=== PATIENT | male | born 1950 | race Caucasian/White ===

== ENCOUNTER 2018-05-08 05:32 | Day surgery (SDC) | payer OTHER, SELFPAY ==
--- NOTE | 2018-05-08 05:32 | DT_ITS ---
This patient was seen during an EMR downtime May 01, 2018 - May 08, 2018. This patient may have a combination of paper and electronic documentation or all paper documentation. All documentation is viewable within the e-chart portion of [facility] for each patient visit.
== END 2018-05-08 07:25 | disposition home or self-care (01) ==
PROVIDERS: Family Provider Family Medicine; PCP Family Medicine; Visit Provider Surgery
PROC: 0DJD8ZZ Inspection of Lower Intestinal Tract, Via Natural or Artificial Opening Endoscopic (ICD-10-PCS; CPT 45378; principal; 2018-05-08 06:25)
DX: K57.30 Diverticulosis of large intestine without perforation or abscess without bleeding (principal); E03.9 Hypothyroidism, unspecified; Z85.828 Personal history of other malignant neoplasm of skin; Z86.010 Personal history of colon polyps; Z87.891 Personal history of nicotine dependence; Z80.0 Family history of malignant neoplasm of digestive organs
CPT/HCPCS: 45378; 99152; 99153; J7120

== ENCOUNTER 2019-05-29 08:25 | Day surgery (SDC) | payer MEDICARE, OTHER, SELFPAY ==
[2019-04-26 13:28] VITALS: BMI 25.3
--- NOTE | 2019-05-28 22:16 | HP.PCM_ITS ---
History and Physical Date of Admission: 05/29/19 HISTORY OF PRESENT ILLNESS The patient comes in today for a TBSE. He has concerns about lesions on his left roman catholic, left lateral forehead by eyebrow, left lateral forehead by hairline, left lateral radial elbow, and right roman catholic area that have increased in size over the last several months and have become more raised in configuration and have developed irregular borders. He has concerns about a lesion on the dorsum left foot between the 3rd and 4th toes that has uniform pigmentation and regular borders and also a lesion on his left lateral neck that has uniform pigmentation and regular borders. He has no complaints about his scar on his left lateral upper eyelid after excision of actinic keratosis with atypia back in November 2013. His lesion on his right mid volar forearm remains stable with no changes. He has not noticed any changes in the previous lesions that were clinical benign keratoses that we were observing namely the left posterior leg, left periumbilical area, left lower cheek, left temporal scalp by hairline, right mid dorsal forearm, and left lateral back. The patient denies any bleeding. The patient denies any swelling. The patient denies any fever. PAST MEDICAL HISTORY colonic polyps Actinic keratosis Arthritis Benign keratosis Bone fracture Hearing problem Skin cancer Thyroid disease PAST SURGICAL HISTORY Abnormal colonoscopy Actinic keratosis Skin cancer of face ALLERGIES No Known Allergies MEDICATIONS Levothyroxine [Synthroid] Tumeric acetaminophen cholecalciferol (vitamin D3) FAMILY HISTORY Mother - Arthritis, Breast cancer, Diabetes, Hypertension, Cancer Father - High cholesterol, Melanoma, Bowel disease Grandfather - Cancer, Lung cancer Grandmother - Cancer Aunt - Colon cancer SOCIAL HISTORY Smoking Status: Former smoker second hand exposure: No alcohol intake: never substance use type: does not use REVIEW OF SYSTEMS General - Denies fear, fatigue, and weight loss. Eyes - Denies cataracts and glaucoma. ENT - Denies nasal congestion and sore throat. Endocrine - Denies excessive thirst and urination. Skin - Previous history of skin cancer. He had an actinic keratosis with atypia removed from his left upper eyelid in November 2013. He also has had skin cancer removed from his right cheek, chin and right nose. Musculoskeletal - Denies joint pain, joint stiffness, weakness of muscles and joints, back pain, and arthritis. Neuro - Denies headaches. Cardiovascular - Denies chest pain, fatigue, and shortness of breath with exertion. Psych - Denies anxiety and depression. Respiratory - Denies chronic cough and shortness of breath. Gastrointestinal - Denies nausea, vomiting, diarrhea, and constipation. Hematologic - Denies abnormal bruising and bleeding. Genitourinary - Denies hematuria and urinary frequency. PHYSICAL EXAMINATION General - Alert and oriented. Well developed, well nourished, in no acute distress. HEENT - PERRL. EOMI. Throat is clear. The incision at his left lateral upper eyelid is well-healed. No evidence of recurrent actinic damage at this time. On the left temporal scalp by hairline is a 5 mm lesion that has regular borders and uniform coloration. Clinically consistent with a benign keratosis. On the left lower cheek is a 6 mm lesion that has regular borders and uniform coloration. Clinically consistent with a benign keratosis and is stable with no changes. On the left roman catholic is a 4 mm lesion that is slightly raised in configuration with irregular borders. No ulceration. Lesion is nontender. Looks actinic in nature. On the left lateral forehead by eyebrow is a 6 mm lesion that is slightly raised in configuration with irregular borders. No ulceration. Lesion is nontender. Looks actinic in nature. On the left lateral forehead by hairline is a 4 mm lesion that is slightly raised in configuration with irregular borders. No ulceration. Lesion is nontender. Looks actinic in nature. On the right roman catholic area is an erythematous area that is flat and rough with some burning. Looks actinic in nature. Neck - Supple and non-tender. No cervical adenopathy. On his left lateral neck is a 6 mm lesion that has regular borders and uniform coloration. Clinically consistent with a benign keratosis. Lungs- Clear to auscultation. Heart - Regular rate and rhythm. Abdomen - Soft and non distended. On the left periumbilical area is a 5 mm lesion that is slightly raised in configuration. Has regular borders. Has uniform coloration. Clinically consistent with a benign keratosis and is stable with no changes. Back - On the left lateral back is a 14 mm lesion that is stable and unchanged. Uniform in color. Has regular borders. It is raised in configuration. Clinically consistent with a benign keratosis. Extremities - FROM. No axillary adenopathy. Radial pulses are palpable. On the right mid dorsal forearm is a 4 mm lesion that is nodular with regular borders. Clinically consistent with a benign keratosis and is stable with no changes. On the right mid volar forearm are a cluster of lesions x2 that measure 4 mm each. Slightly crusty with regular borders. No ulceration. Lesions are nontender. Appear stable with no changes noted at this time. On the left lateral radial elbow is a 7 mm lesion that is nodular and raised in configuration. Has irregular borders. Has a cutaneous horn component. No ulceration. Lesion is nontender. On his left posterior leg is a 3 mm lesion that has some erythema. Uniform in color. Has regular borders. It is flat. Clinically consistent with a benign keratosis and is stable with no changes. On the dorsum left foot between the 3rd and 4th toes is a 2 mm pigmented lesion with regular borders. Uniform coloration. Appears benign at this time. Will observe. Neuro - CN II-XII grossly intact. Psych - Normal and mood and affect. ASSESSMENT 1. 7 mm cutaneous horn lesion left lateral radial elbow. 2. 4 mm lesion left roman catholic. 3. 6 mm lesion left lateral forehead by eyebrow. 4. 4 mm lesion left lateral forehead by hairline. 5. Actinic damage right roman catholic area. 6. 2mm pigmented lesion dorsum left foot between 3rd and 4th toes. 7. Personal history of skin cancer. 8. Family history of skin cancer. PLAN His actinic keratosis with atypia left lateral upper eyelid remains healed at this time with no evidence of recurrence. He has a cutaneous horn lesion left lateral radial elbow that needs excision. Will send the lesion to Pathology for analysis to rule out carcinoma. If carcinoma is present, then further excision will be done with skin flap reconstruction. Recommend excision of lesions left roman catholic, left lateral forehead by eyebrow, and left lateral forehead by hairline and send them to Pathology for analysis to rule out carcinoma. If carcinoma is present, then further excision will be done with skin graft or skin flap reconstruction. If any lesions are actinic on biopsy then will treat them with Aldara. At that time will also treat the right roman catholic area with Aldara as well as it looks actinic in nature. Will apply Aldara to these areas daily at night 5 days per week for 6 weeks. Will then re-evaluate at 2 months. The lesions on his right mid dorsal forearm, left lateral back, left lower cheek, left temporal scalp by hairline, left periumbilical area, left posterior leg, and left lateral neck appear to be benign keratoses. Will continue to observe at this time. If any changes occur, then can evaluate for excision. If excised, will send to Pathology for analysis to rule out carcinoma. There is a 2 mm pigmented lesion on dorsum of left foot between the 3rd and 4th toe. Has uniform coloration and regular borders. Appears clinically benign at this time. Can observe them at this time. If any changes occur, then can evaluate for excision. If excised, will send to Pathology for analysis to rule out carcinoma. The lesions right mid volar forearm are stable at this time with no changes. Continue to observe. If any changes occur, then can evaluate for excision. The surgery will be done on an outpatient basis under local anesthesia and IV sedation. Patient was informed of the risks and complications of the procedure including alternatives to surgery. These were discussed with the patient personally. Patient voices understanding and wishes to proceed. Some of the risks and complications were included in a form from the [employer].
--- NOTE | 2019-05-29 | LES_PTH ---
PATIENT: YANE BUTCHER [place] [facility] [place][id number] AGE/SX: 68/M ROOM: RE05/29/[address]: Dr. Phani Crawford MD : [id number] BED: DIS: 05/29/2019 SPEC #: [id number] RECD: 05/29/19 10:09 STATUS: CARO NASIMA #: [id number] TAE: 05/29/19 00:[address]: Phani Crawford DEPT: SURGICAL PATHOLOGY RECD BY: Charlette Bar ENTERED: 05/29/19 11:12 SP TYPE: Lesion OTHR DR: Dr. Oli Godinez DO Tissues: A - Skin of arm B - Skin of forehead C - Skin of forehead D - Skin of face, NOS Procedures: Frozen Section (charge) Surgery Specimen Level IV HEADER OPERATION: Excision cutaneous horn lesion, left elbow with frozen section PRE-OP DIAGNOSIS: 7 mm cutaneous horn lesion left lateral radial elbow; 4 mm lesion left sabianist; 6?mm lesion left lateral forehead by eyebrow; 4 mm lesion left lateral forehead by hairline TISSUE SUBMITTED: A - 7 mm cutaneous horn lesion left lateral radial elbow, FS at 1003; B - 4 mm lesion left lateral forehead by hairline, FS at 1011, C - 4 mm lesion left sabianist, FS at 1011, D - 4 mm lesion left lateral forehead by eyebrow, FS at 1011 FROZEN SECTION DIAGNOSIS A. Skin lesion, left elbow, biopsy: Verrucoid keratosis with cutaneous horn. B. Skin lesion, left lateral forehead, shave biopsy: Mild actinic change and hyperkeratosis. C. Skin lesion, left lateral forehead by eyebrow, shave biopsy: Mild actinic change. D. Skin lesion, left lateral sabianist, shave biopsy: Mild actinic change. AM:jr 05/29/19 MICROSCOPIC DIAGNOSIS A. Skin lesion of left elbow, shave biopsy: Verrucoid keratosis with associated cutaneous horn. Mild solar elastosis. B. Skin lesion, left lateral forehead, shave biopsy: Actinic keratosis. Solar elastosis. C. Skin lesion, left lateral forehead by eyebrow, shave biopsy: Actinic keratosis with seborrheic keratosis-like morphology. D. Skin lesion, left lateral sabianist, shave biopsy: Polypoid actinic keratosis. AM:jr 05/30/19 MICROSCOPIC DESCRIPTION Slides are reviewed. GROSS DESCRIPTION A - Received fresh for frozen section consultation labeled with the patient's name is a specimen designated lesion left lateral radial elbow. The specimen consists of a discoid fragment of excised huston skin measuring 0.8 x 0.7 x 0.3 cm. The region with suture is inked in red ink. The remainder of the specimen is inked in black ink. The specimen is bisected and submitted in its entirety for frozen section consultation in one block. B - Received fresh for frozen section consultation labeled with the patient's name is a specimen designated lesion left lateral forehead. The specimen consists of a light huston shave biopsy of measuring 0.6 x 0.5 x <0.1 cm. The specimen is inked, bisected and totally submitted for frozen section consultation in one block. C - Received fresh for frozen section consultation labeled with the patient's name is a specimen designated lesion left lateral forehead. The specimen consists of a light huston shave biopsy of measuring 0.5 x 0.3 x <0.1 cm. The specimen is inked and totally submitted for frozen section consultation in one block. D - Received fresh for frozen section consultation labeled with the patient's name is a specimen designated lesion left sabianist. The specimen consists of a light huston shave biopsy of measuring 0.5 x 0.3 x <0.1 cm. The specimen is inked and totally submitted for frozen section consultation in one block. / AM:jr 05/29/19 TC:5 CPT: 73875 x4, 30043 x4
[2019-05-29 08:49] VITALS: BMI 25.0
[2019-05-29] MEDS: Mupirocin Ointment 22gm Tube 1 APPLIC (10:36)
--- NOTE | 2019-05-29 10:46 | PCM.OPRPT ---
Report of Operation Date of Procedure: 05/29/19 Pre-Operative Diagnosis: 1. 7 mm cutaneous horn lesion left lateral radial elbow. 2. 4 mm lesion left scientologist. 3. 6 mm lesion left lateral forehead by eyebrow. 4. 4 mm lesion left lateral forehead by hairline. 5. Personal history of skin cancer. 6. Family history of skin cancer. Post-Operative Diagnosis: 1. 7 mm actinic keratosis left lateral radial elbow. 2. 4 mm actinic keratosis left scientologist. 3. 6 mm hyperkeratosis left lateral forehead by eyebrow. 4. 4 mm actinic keratosis left lateral forehead by hairline. 5. Personal history of skin cancer. 6. Family history of skin cancer. Surgery/Procedure Performed:: 1. Excision 7 mm actinic keratosis left lateral radial elbow with rhomboid transposition skin flap reconstruction. 2. Intradermal excision 4 mm actinic keratosis left scientologist. 3. Intradermal excision 6 mm hyperkeratosis left lateral forehead by eyebrow. 4. Intradermal excision 4 mm actinic keratosis left lateral forehead by hairline. Description of Surgical Findings:: The patient comes in today for a TBSE. He has concerns about lesions on his left scientologist, left lateral forehead by eyebrow, left lateral forehead by hairline and left lateral radial elbow that have increased in size over the last several months and have become more raised in configuration and have developed irregular borders. The patient denies any bleeding. The patient denies any swelling. The patient denies any fever. He has a personal history of skin cancer. Patient was informed of the risks and complications of the procedure including alternatives to surgery. These were discussed with the patient personally. Patient voices understanding and wishes to proceed. Some of the risks and complications were included in a form from the [employer]. Frozen section left lateral radial elbow - actinic keratosis and no carcinoma seen. Frozen section left scientologist - actinic keratosis and no carcinoma seen. Frozen section left lateral forehead by eyebrow - hyperkeratosis and no carcinoma seen. Frozen section left lateral forehead by hairline - actinic keratosis and no carcinoma seen. plate gauger: Yolanda Ngo. Type of Anesthesia:: Local MAC - xylocaine with epinephrine and IV sedation. Specimen's removed: 1. Cutaneous horn lesion left lateral radial elbow to Pathology as a frozen section. 2. Lesion left scientologist to Pathology as a frozen section. 3. Lesion left lateral forehead by eyebrow to Pathology as a frozen section. 4. Lesion left lateral forehead by hairline to Pathology as a frozen section. 5. Actinic keratosis left lateral radial elbow to Pathology. Drains: None. Estimated Blood Loss (mL): 5 ml. Description of Procedure: Patient was taken to OR in supine position and was given IV sedation. The face and left elbow areas were prepped and draped in the usual fashion. SCD's were placed for DVT prophylaxis. Perioperative antibiotics were given intravenously. The lesions left lateral radial elbow, left scientologist, left lateral forehead by eyebrow, and left lateral forehead by hairline were infiltrated with xylocaine and epinephrine. After waiting 5 minutes for the anesthetic to take effect, The cutaneous horn lesion left lateral radial elbow was excised with a 1 mm margin in all directions down into the subcutaneous tissue. A suture was marked at the 12 oclock position for pathology orientation. The lesion was sent to Pathology as a frozen section for analysis to rule out carcinoma. The lesions on his left scientologist, left lateral forehead by eyebrow, and left lateral forehead by hairline were excised in an intradermal fashion and sent to Pathology as a frozen section for analysis to rule out carcinoma. Frozen section showed the lesion left lateral radial elbow was actinic keratosis and no carcinoma seen. The lesion left scientologist was actinic keratosis and no carcinoma seen. The lesion left lateral forehead by eyebrow was hyperkeratosis and no carcinoma seen. The lesion left lateral forehead by hairline was actinic keratosis and no carcinoma seen. For the 3 lesions on the face, will apply Aldara cream to these areas to help heal them and take care of any actinic damage in the deeper dermis. The wound defect left lateral radial elbow will be closed with a local transposition skin flap. Since no carcinoma was seen, no additional margin will be necessary. I designed the rhomboid flap adjacent to the wound defect. Incisions were made and the rhomboid flap was elevated on a subcutaneous pedicle and easily transposed into the defect with minimal tension and minimal distortion. Hemostasis was obtained with electrocautery. The wound was irrigated with saline. The flap was transposed into the defect and closed in a layered fashion using 4-0 Monocryl interrupted sutures for the deep dermis and subcutaneous tissue. The skin was approximated with 4-0 Nylon simple interrupted sutures. Antibiotic ointment was applied to the suture line followed by gauze and a compression emili wrap. For the three lesions on his face, hemostasis was obtained with silver nitrate chemical cauterization. Antibiotic ointment was applied to the wounds. Patient tolerated the procedure well and was sent to PACU in satisfactory condition. Patient will be sent home on antibiotics and pain medication. He will keep his head elevated and his left arm elevated during the initial postop period. Patient will followup in a week for a wound check and for discussion of the pathology report. Sutures will be removed in 1-2 weeks. After the silver nitrate chemical cauterization scabs have been removed, will apply Aldara cream to the actinic lesions to be applied daily at night 5 days per week for 6 weeks and then re-evaluation in 2 months. Grafts/Implants Used: None. - Complications None. - Admit VTE Documentation VTE Present on Admission: No VTE Mechan Device Prophylaxis: SCD's VTE Pharm Prophylaxis ordered?: No Code Visit Surgery Charges CPT - 85562 ICD-10 - L57.0, Z85.828, Z80.8 03388 L85.9, Z85.828, Z80.8, L57.0 40971 L57.0, Z85.828, Z80.8 75875 L57.0, Z85.828, Z80.8
--- NOTE | 2019-05-29 10:54 | DCINST_ITS ---
You will use the following diet at home:: No restrictions Discharge Activity: May not drive while taking narcotic pain medications., - - head elevated. left arm elevated. no heavy lifting. May shower in (days): 2 May resume sexual activity in: No Restrictions Weight Bearing Status: Weight bearing as tolerated Lifting Restrictions: 20 lbs. Keep extremity elevated above heart level: Left Arm, - - elevate head Call your doctor if your incision/area has: Continuous Slow Oozing, Sudden Increased Bleeding, Increased Pain/ Swelling, Increased Redness, Foul Smelling Discharge, Swelling at the incision site Call your doctor if you observe: Fever of 101 or Higher, Coldness, Increased Pain, Shortness of breath, Chest pain, Calf discomfort, Uncontrolled pain Suture Line Care: - - apply antibiotic ointment to suture line daily. Change Dressing in (Days):: 2 Cleanse incision/area with: - - may get incisions wet in the shower in two days. Allergies/Adverse Reactions: Allergies No Known Allergies Allergy (Verified 05/29/19 08:47) Medications to take at Discharge Levothyroxine [Synthroid] 75 mcg PO DAILY 12/20/13 Tumeric 500 mg PO DAILY 12/20/13 acetaminophen 325 mg capsule 325 mg PO QHS 04/26/19 cholecalciferol (vitamin D3) 1,000 unit capsule 1,000 unit PO DAILY 04/26/19 Clindamycin HCl [Cleocin] 300 mg PO TID #12 cap 05/29/19 Lactobacillus Acidophilus/Fos [Acidophilus Probiotic Tablet] 1 ea PO BID #10 tab 05/29/19 Oxycodone HCl/Acetaminophen [Percocet 5/325] 1 tab PO 4X/DAY PRN PRN 7 Days #30 tab 05/29/19 The following prescriptions were given: Lactobacillus Acidophilus/Fos [Acidophilus Probiotic Tablet] 1 ea PO BID #10 tab Prescription Printed Clindamycin HCl [Cleocin] 300 mg PO TID #12 cap Prescription Printed Oxycodone HCl/Acetaminophen [Percocet 5/325] 1 tab PO 4X/DAY PRN PRN 7 Days #30 tab PRN Reason: Pain Prescription Printed Primary Care Physician: Oli Godinez DO [Primary Care Provider] - Test Results: Test results from this visit will be discussed in further detail at your follow- up appointment, if applicable. Please Follow Up With: Phani Crawford MD When: one week. call [phone] for appt. Proposed Discharge Date: 05/29/19
[2019-05-29 10:55] VITALS: BP 127/75; BP 150/75; PULSE 56; RESP 16; TEMP 36.3; O2SAT 100
[2019-05-29 11:00] VITALS: BP 126/79; BP 150/75; PULSE 52; RESP 16; O2SAT 97
[2019-05-29 11:05] VITALS: BP 133/80; BP 150/75; PULSE 51; RESP 16; O2SAT 97
[2019-05-29 11:11] VITALS: BP 132/80; BP 150/75; PULSE 52; RESP 16; TEMP 36.3; O2SAT 98
[2019-05-29 11:40] VITALS: BP 150/75
== END 2019-05-29 11:48 | disposition home or self-care (01) ==
LOC: SDC 08:30 → AC 08:34
PROVIDERS: Family Provider Family Medicine; PCP Family Medicine; Referring Provider Surgery; Visit Provider Surgery
PROC: (CPT 11420; principal; 2019-05-29 09:40)
DX: L57.0 Actinic keratosis (principal); L85.8 Other specified epidermal thickening; L85.9 Epidermal thickening, unspecified; M19.90 Unspecified osteoarthritis, unspecified site; E07.9 Disorder of thyroid, unspecified; Z85.828 Personal history of other malignant neoplasm of skin; Z87.891 Personal history of nicotine dependence; Z79.899 Other long term (current) drug therapy
CPT/HCPCS: 11420; 11441; 14020; 88305; 88331; J7120

== ENCOUNTER 2019-07-05 11:43 | Emergency (ER) | payer MEDICARE, SELFPAY ==
[2019-06-11 13:16] VITALS: BMI 25.0
[2019-07-05 11:44] VITALS: BP 148/80; PULSE 53; RESP 17; TEMP 36.8; O2SAT 98; BMI 24.7
--- NOTE | 2019-07-05 11:52 | CT_ITS ---
STUDY: CT BRAIN WITHOUT CONTRAST REASON FOR EXAM: Male, 69 years old. 3 day history of dizziness. RADIATION DOSAGE (If Supplied By Facility): CTDIvol = ( 60.81 ) mGy, DLP = ( 1044.28 ) mGycm TECHNIQUE: Transaxial CT imaging of the brain was performed without administration of intravenous contrast material. Individualized dose optimization techniques were used for this CT. COMPARISON: No relevant priors. FINDINGS: Normal soft tissue structures. Normal calvarium. Normal size ventricles and extra-axial spaces for the patient's age. Normal white matter tracts of the cerebral hemispheres. Normal basal ganglia and thalami. Normal brainstem. Normal cerebellum. There is no intracranial hemorrhage. There are no findings of an acute ischemic infarction. Normal visualized paranasal sinuses. CT/Brain/Head without Contrast IMPRESSION: Normal unenhanced CT scan of the brain. Electronically Signed: Ash Khan, at 13:06 EDT , Service support ,
--- NOTE | 2019-07-05 11:52 | EKG12_ITS ---
Test Reason : Blood Pressure : / mmHG Vent. Rate : 055 BPM Atrial Rate : 055 BPM P-R Int : 174 ms QRS Dur : 084 ms QT Int : 446 ms P-R-T Axes : 024 076 047 degrees QTc Int : 426 ms Sinus bradycardia Otherwise normal ECG Confirmed by AUNDREA KANG ([id number]), design editor ANGELITO BUSTILLOS ([id number]) on 07/09/2019 1:22:43 PM Referred By: GUDELIA Confirmed By:AUNDREA KANG
--- NOTE | 2019-07-05 11:56 | RAD_ITS ---
STUDY: X-RAY CHEST REASON FOR EXAM: Male, 69 years old. Dizziness. TECHNIQUE: Single AP portable view of the chest. COMPARISON: None. FINDINGS: Normal anatomic variant of an azygos lobe in the right upper lobe. Scattered calcified granuloma. There is no demonstrated pleural abnormality. Normal size heart. Normal mediastinum and christiano. Normal visualized pulmonary arteries. Normal visualized aortic arch and descending thoracic aorta. Normal visualized thoracic spine. Normal visualized ribs, clavicles, and shoulders. There is no demonstrated abnormality of the visualized soft tissue structures of the upper abdomen. RAD/Chest 1 View (Portable) IMPRESSION: No acute abnormality is seen. Electronically Signed: Ash Khan, at 13:05 EDT , Service support ,
--- NOTE | 2019-07-05 12:04 | ED.VIS.GEN ---
History of Present Illness Chief Complaint: Dizziness Informant: Patient, Family Onset: Days Current Severity: Mild Narrative: Reports intermittent dizzy sensation since Tuesday paroxysmal nothing triggers it just comes and goes on its own last for very short period of time no head neck chest or abdominal pain no ear buzzing change in vision numbness weakness paresthesias, no mental confusion, history of hypothyroidism on meds otherwise no history, no history of VT PE DVT seizure stroke, review of systems are negative, bowel bladder habits been normal no symptoms at this time Past Medical History - Allergies and Home Meds Allergies/Adverse Reactions: Allergies No Known Allergies Allergy (Verified 07/05/19 11:44) Primary Care Physician: Oli Godinez DO [Primary Care Provider] - Past Medical History: - Smoking Status: Former smoker Review of Systems ROS: - Hypothyroid General: Denies: Chills, Fever, Sweats Eyes: Denies: Visual changes - bilaterally, Diplopia ENT: Denies: Rhinorrhea, Sore throat Cardiovascular: Denies: Chest pain, Palpitations Respiratory: Denies: Dyspnea, Cough, Dyspnea on exertion Gastrointestinal: Denies: Abdominal pain, Nausea, Vomiting, Diarrhea, Melena, Hematochezia Genitourinary: Denies: Dysuria, Hematuria, Frequency Musculoskeletal: Denies: Back pain, Extremity Pain Skin: Denies: Rash, Wounds Neurological: Reports: - - Intermittent dizziness. Denies: Headache, Weakness, Numbness Physical Exam Vital Signs/Narrative: Vital Signs Temp Pulse Resp BP Pulse Ox 07/05/19 11:44 98.2 F 53 L 17 148/80 H 98 General: Well nourished, Well developed, No Acute Distress Head: Normocephalic, Atraumatic Eyes: Perrl, EOMI ENT: Moist mucous membranes, No rhinorrhea Neck: Supple, Nontender Cardiovascular: Regular rate, Regular rhythm, No murmurs Respiratory: No distress, CTA bilaterally, Chest nontender Abdomen: Soft, Nontender, Nondistended, Normal bowel sounds Back: Nontender, Normal Inspection Extremities: Nontender, No edema Skin: Normal color, No rash Neurological: Alert, Oriented x3, Cranial nerves II-XII grossly intact, Normal Strength, Normal Sensation, - - His gait is normal there is no dizziness now, there is no ataxia of any kind, neurologic exam is negative, NIH 0 Psychological: Normal affect, Normal Mood Diagnostic/Tx/Re-eval - Medical Decision Making Given his age his complaints screening labs head CT Patient screening labs are in unremarkable, see those reports, head CT negative EKG shows sinus rhythm nothing acute rate about 70-80, on reevaluation resting comfortably bed remains asymptomatic he has had the symptoms again for a few days intermittently we explained the etiology is unclear recently discussed TIA versus other life-threatening causes, we discussed inpatient versus outpatient management he does not wish to be admitted, he reports now is been under quite a bit of stress it is concerned this may be related to that I explained to him again etiology is unclear he wants to go home he will be started on Antivert follow-up with his primary care doctors and return for change in symptoms Home stable declined admission Final impression Transient dizziness etiology unclear ED Disposition - Plan for ED Patient: Diagnosis: Dizziness of unknown cause Instructions: DIZZINESS, Unk Cause Prescriptions: Meclizine HCl [Antivert] 25 mg PO 4X/DAY PRN PRN #20 tab PRN Reason: Dizziness Prescription Printed Referrals: Oil Godinez DO [Primary Care Provider] -
[2019-07-05 12:26] LABS: Absolute Lymphocyte Count 1.55 X10^3/uL (0.83-4.51); Absolute Neutrophil Count 4.9 X10^3/uL (2.0-7.7); Basophil# 0.03 X10^3/uL; Basophil% 0.4 % (0-1); Eosinophil# 0.04 X10^3/uL; Eosinophils% 0.6 % (0-5); Hematocrit 45.4 % (40-54); Hemoglobin 15.6 g/dL (13.0-16.5); Lymphocyte # 1.55 X10^3/ul (4.0); Lymphocyte % 22.5 % (19-41); Mean Corp Hgb Conc 34.4 g/dL (32-36); Mean Corpuscular Volume 93.2 fL (80-94); Monocyte# 0.34 X10^3/uL; Monocyte% 4.9 % (0-10); NRBC Flagged by Analyzer 0 % (0-5); Neutrophil # 4.92 X10^3/uL (2.7-7.7); Neutrophil % 71.5 % (47-70); Platelet Count 183 K/mm3 (150-450); RBC Distribution Width CV 12.1 % (11.6-14.6); RBC Distribution Width SD 41.5 fl (35.1-43.9); Red Blood Count 4.87 M/mm3 (4.6-6.2); White Blood Count 6.9 K/mm3 (4.4-11.0)
[2019-07-05 12:51] LABS: Anion Gap 6 (5-15); BUN 17 mg/dL (7-18); BUN/Creat Ratio 17.5 RATIO (10-20); Calcium,Total 9.8 mg/dL (8.5-10.1); Chloride 109 mmol/L (98-107); Creatinine, Serum 0.97 mg/dL (0.70-1.30); EST Glomerular Filtration Rate 82 mL/min (>60); Est Glom Filt Rate - Afr Amer 99 mL/min (>60); Estimated Creatinine Clearance 82.37 ml/min; Glucose 109 mg/dL (74-106); Potassium 4.1 mmol/L (3.5-5.1); Sodium Level 141 mmol/L (136-145)
== END 2019-07-05 13:50 | disposition home or self-care (01) ==
LOC: ED 12:18
PROVIDERS: Emergency Provider Emergency Medicine; Family Provider Family Medicine; PCP Family Medicine
DX: R42 Dizziness and giddiness (principal); Z79.899 Other long term (current) drug therapy; Z87.891 Personal history of nicotine dependence
CPT/HCPCS: 70450; 71045; 80048; 84484; 85025; 93005; 99284; A4216

== ENCOUNTER → 2019-07-13 10:45 | Outpatient (CLI) | payer MEDICARE, SELFPAY ==
[2019-07-05 11:44] VITALS: BMI 24.7
--- NOTE | 2019-07-13 11:08 | RAD_ITS ---
STUDY: X-RAY - ABDOMEN/PELVIS REASON FOR EXAM: Male, 69 years old. Abdominal pain. TECHNIQUE: For frontal images of the abdomen were obtained. COMPARISON: None. FINDINGS: Normal visualized lung bases. There is an unremarkable bowel gas pattern. There is no demonstrated free abdominal air. Normal soft tissue structures. Normal visualized osseous structures. RAD/Abd Inc Decub and/or Erect IMPRESSION: Nonspecific bowel gas pattern. Electronically Signed: Leyda Red MD at 16:54 EDT Tel , Service support ,
[2019-07-13 13:40] LABS: Absolute Lymphocyte Count 1.69 X10^3/uL (0.83-4.51); Absolute Neutrophil Count 4.4 X10^3/uL (2.0-7.7); Basophil# 0.04 X10^3/uL; Basophil% 0.6 % (0-1); Eosinophil# 0.07 X10^3/uL; Eosinophils% 1.1 % (0-5); Hematocrit 48.3 % (40-54); Hemoglobin 16.3 g/dL (13.0-16.5); Lymphocyte # 1.69 X10^3/ul (4.0); Lymphocyte % 25.8 % (19-41); Mean Corp Hgb Conc 33.7 g/dL (32-36); Mean Corpuscular Hgb 31.9 pg (27.0-32.0); Mean Corpuscular Volume 94.5 fL (80-94); Mean Platelet Vol. 10.7 fl (6.2-12.0); Monocyte# 0.36 X10^3/uL; Monocyte% 5.5 % (0-10); NRBC Flagged by Analyzer 0 % (0-5); Neutrophil # 4.38 X10^3/uL (2.7-7.7); Neutrophil % 66.7 % (47-70); Platelet Count 199 K/mm3 (150-450); RBC Distribution Width CV 12.1 % (11.6-14.6); RBC Distribution Width SD 42.5 fl (35.1-43.9); Red Blood Count 5.11 M/mm3 (4.6-6.2); White Blood Count 6.6 K/mm3 (4.4-11.0)
[2019-07-13 14:12] LABS: ALB/GLOB Ratio 1.2 RATIO (0.9-2.4); AST(SGOT) 8 U/L (15-37); Alanine Aminotransfer ALT/SGPT 20 U/L (16-61); Albumin, Serum 4.1 g/dL (3.2-5.0); Alkaline Phosphatase 64 U/L (45-117); Anion Gap 6 (5-15); BUN 20 mg/dL (7-18); BUN/Creat Ratio 19.4 RATIO (10-20); Calcium,Total 9.2 mg/dL (8.5-10.1); Chloride 111 mmol/L (98-107); Creatinine, Serum 1.03 mg/dL (0.70-1.30); EST Glomerular Filtration Rate 76 mL/min (>60); Est Glom Filt Rate - Afr Amer 92 mL/min (>60); Globulin 3.4 g/dL (2.2-4.2); Glucose 100 mg/dL (74-106); PSA,Total - Annual Screen 1.98 ng/mL (0.00-4.00); Potassium 4.4 mmol/L (3.5-5.1); Protein, Total 7.5 g/dL (6.4-8.2); Sodium Level 143 mmol/L (136-145)
[2019-07-13 14:52] LABS: Hepatitis C Antibody Non-Reactive (Nonreactive)
== END ==
PROVIDERS: Family Provider Family Medicine; PCP Family Medicine; Referring Provider Family Medicine Geriatric Medicine; Visit Provider Family Medicine Geriatric Medicine
DX: R53.83 Other fatigue (principal); R10.9 Unspecified abdominal pain; Z12.5 Encounter for screening for malignant neoplasm of prostate; Z13.89 Encounter for screening for other disorder
CPT/HCPCS: 36415; 74019; 80053; 84153; 84443; 85025; 86803; G0103

== ENCOUNTER → 2019-07-18 09:06 | Outpatient (CLI) | payer MEDICARE, SELFPAY ==
[2019-07-05 11:44] VITALS: BMI 24.7
--- NOTE | 2019-07-18 09:09 | US_ITS ---
PROCEDURES: ULTRASOUND AORTA REASON FOR EXAM: Male, 69 years old. Abdominal aortic aneurysm assessment TECHNIQUE: Ultrasound evaluation of the aorta was performed with real-time and static clark-scale imaging. COMPARISON: None. FINDINGS: There is no elongation or tortuosity of the abdominal aorta. Aorta measures: Proximal 2.5 cm. Middle 1.7 cm. Distal 1.5 cm. Aorta measure transversely: Proximal 2.4 cm. Middle 1.8 cm. Distal 1.5 cm. Right iliac artery measures: 0.9 cm. Right iliac artery measure transversely: 0.8 cm. Left iliac artery measures: 0.8 cm. Left iliac artery measure transversely: 1.1 cm. There is no demonstrated aneurysm.. US/Aorta IMPRESSION: Normal caliber of abdominal aorta with no evidence of aneurysm. Electronically Signed: Jayme Castellanos MD at 15:12 EDT Tel [phone], Service support ,
== END ==
PROVIDERS: Family Provider Family Medicine; PCP Family Medicine; Referring Provider Family Medicine Geriatric Medicine; Visit Provider Family Medicine Geriatric Medicine
DX: Z13.89 Encounter for screening for other disorder (principal); I71.4 Abdominal aortic aneurysm, without rupture
CPT/HCPCS: 76775

== ENCOUNTER → 2020-01-14 09:30 | Outpatient (CLI) | payer MEDICARE, SELFPAY ==
[2019-08-15 10:36] VITALS: BMI 24.7
--- NOTE | 2020-01-14 10:33 | RAD_ITS ---
STUDY: X-RAY - RIGHT HAND REASON FOR EXAM: Bilateral hand joint pain, no specific injury. TECHNIQUE: 3 view(s) of the hand. COMPARISON: None. FINDINGS: Normal radiocarpal articulation. Normal distal radioulnar joint. Normal visualized carpal bones. Normal carpal articulations Normal carpometacarpal articulation of the thumb. Normal second through fifth carpometacarpal joints. Normal metacarpi. Normal metacarpophalangeal joint of the thumb. Normal interphalangeal joint of the thumb. Normal proximal and distal phalanges of the thumb. There are marginal osteophytes and moderate joint space narrowing of the third metacarpophalangeal joint. There are small marginal osteophytes and mild joint space narrowing of the second proximal interphalangeal joint. There is mild chronic healed fracture deformity of the fifth proximal phalangeal base. The soft tissue structures are unremarkable. 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 Mild chronic healed fracture deformity of the fifth proximal phalangeal base. Electronically Signed: Delfin Dean MD at 15:05 EST Tel , Service support ,
--- NOTE | 2020-01-14 10:33 | RAD_ITS ---
STUDY: X-RAY - LEFT HAND REASON FOR EXAM: Bilateral hand joint pain, no specific injury. TECHNIQUE: 3 view(s) of the hand. COMPARISON: None. FINDINGS: Normal radiocarpal articulation. Normal distal radioulnar joint. Normal visualized carpal bones. Normal carpal articulations Normal carpometacarpal articulation of the thumb. Normal second through fifth carpometacarpal joints. Normal metacarpi. Normal metacarpophalangeal joint of the thumb. Normal interphalangeal joint of the thumb. Normal proximal and distal phalanges of the thumb. Normal metacarpophalangeal joints of the second through fifth fingers. Normal proximal and distal interphalangeal joints of the second through fifth fingers. Normal phalanges of the second through fifth fingers. The soft tissue structures are unremarkable. RAD/Hand Min 3 Views IMPRESSION: Normal x-ray examination of the left hand. Electronically Signed: Delfin Dean MD at 13:57 EST Tel , Service support ,
[2020-01-14 12:37] LABS: Absolute Lymphocyte Count 1.62 X10^3/uL (0.83-4.51); Absolute Neutrophil Count 3.3 X10^3/uL (2.0-7.7); Basophil# 0.05 X10^3/uL; Basophil% 0.9 % (0-1); Eosinophil# 0.08 X10^3/uL; Eosinophils% 1.5 % (0-5); Hematocrit 44.3 % (40-54); Hemoglobin 14.6 g/dL (13.0-16.5); Lymphocyte # 1.62 X10^3/ul (4.0); Lymphocyte % 29.9 % (19-41); Mean Corpuscular Hgb 31.5 pg (27.0-32.0); Mean Corpuscular Volume 95.5 fL (80-94); Mean Platelet Vol. 10.7 fl (6.2-12.0); Monocyte# 0.33 X10^3/uL; Monocyte% 6.1 % (0-10); NRBC Flagged by Analyzer 0 % (0-5); Neutrophil # 3.33 X10^3/uL (2.7-7.7); Neutrophil % 61.4 % (47-70); Platelet Count 172 K/mm3 (150-450); RBC Distribution Width CV 12.6 % (11.6-14.6); RBC Distribution Width SD 43.6 fl (35.1-43.9); Red Blood Count 4.64 M/mm3 (4.6-6.2); White Blood Count 5.4 K/mm3 (4.4-11.0)
[2020-01-14 13:11] LABS: ALB/GLOB Ratio 1.3 RATIO (0.9-2.4); AST(SGOT) 14 U/L (15-37); Alanine Aminotransfer ALT/SGPT 23 U/L (16-61); Alkaline Phosphatase 49 U/L (45-117); Anion Gap 5 (5-15); BUN 18 mg/dL (7-18); Calcium,Total 9.1 mg/dL (8.5-10.1); Chloride 107 mmol/L (98-107); Creatinine, Serum 1.06 mg/dL (0.70-1.30); EST Glomerular Filtration Rate 74 mL/min (>60); Est Glom Filt Rate - Afr Amer 89 mL/min (>60); Globulin 3.1 g/dL (2.2-4.2); Glucose 94 mg/dL (74-106); Potassium 4.3 mmol/L (3.5-5.1); Protein, Total 7.1 g/dL (6.4-8.2); Sodium Level 140 mmol/L (136-145)
[2020-01-14 14:20] LABS: Vitamin D,25 Hydroxy 35.9 ng/mL (29.95-100.01)
== END ==
PROVIDERS: PCP Family Medicine Geriatric Medicine; Visit Provider Family Medicine Geriatric Medicine
DX: E55.9 Vitamin D deficiency, unspecified (principal); R53.83 Other fatigue; M19.041 Primary osteoarthritis, right hand; M79.642 Pain in left hand
CPT/HCPCS: 36415; 73130; 80053; 82306; 84443; 85025

== ENCOUNTER → 2020-07-14 | Outpatient (CLI) | payer MEDICARE, SELFPAY ==
[2020-02-06 10:05] VITALS: BMI 24.7
--- NOTE | 2020-07-14 11:08 | RAD_ITS ---
STUDY: X-RAY - PELVIS AND RIGHT HIP REASON FOR EXAM: Male, 70 years old. RIGHT HIP PAIN, NKI TECHNIQUE: 3 views of the pelvis and hip. COMPARISON: None. FINDINGS: There is a non-specific bowel gas pattern. Normal visualized soft tissue structures. Normal bilateral iliac wings, sacroiliac joints and visualized sacrum. Normal bilateral superior and inferior pubic rami. Normal pubic symphysis. Normal bilateral ischial tuberosities. Normal visualized femoral head. Normal acetabulum. Normal hip joint. RAD/HIP, UNI W/ Pelvis 2-3 Views IMPRESSION: Normal x-ray examination of the pelvis and hip. Electronically Signed: Miguel Kimble MD at 11:34 EDT , Service support ,
[2020-07-14 12:41] LABS: Absolute Lymphocyte Count 2.02 X10^3/uL (0.83-4.51); Basophil# 0.06 X10^3/uL; Basophil% 0.9 % (0-1); Eosinophil# 0.11 X10^3/uL; Eosinophils% 1.7 % (0-5); Hematocrit 45.6 % (40-54); Hemoglobin 14.6 g/dL (13.0-16.5); Lymphocyte # 2.02 X10^3/ul (4.0); Lymphocyte % 30.7 % (19-41); Mean Corpuscular Hgb 31.1 pg (27.0-32.0); Monocyte# 0.38 X10^3/uL; Monocyte% 5.8 % (0-10); NRBC Flagged by Analyzer 0 % (0-5); Neutrophil # 3.99 X10^3/uL (2.7-7.7); Neutrophil % 60.4 % (47-70); Platelet Count 180 K/mm3 (150-450); RBC Distribution Width CV 12.4 % (11.6-14.6); RBC Distribution Width SD 43.8 fl (35.1-43.9); White Blood Count 6.6 K/mm3 (4.4-11.0)
[2020-07-14 12:53] LABS: Vitamin D,25 Hydroxy 36.8 ng/mL
[2020-07-14 13:04] LABS: ALB/GLOB Ratio 1.2 RATIO (0.9-2.4); AST(SGOT) 15 U/L (15-37); Alanine Aminotransfer ALT/SGPT 27 U/L (16-61); Albumin, Serum 3.9 g/dL (3.2-5.0); Alkaline Phosphatase 52 U/L (45-117); Anion Gap 4 (5-15); BUN 17 mg/dL (7-18); BUN/Creat Ratio 17.9 RATIO (10-20); Calcium,Total 9.1 mg/dL (8.5-10.1); Chloride 106 mmol/L (98-107); Creatinine, Serum 0.95 mg/dL (0.70-1.30); EST Glomerular Filtration Rate 84 mL/min (>60); Est Glom Filt Rate - Afr Amer 101 mL/min (>60); Globulin 3.3 g/dL (2.2-4.2); Glucose 76 mg/dL (74-106); PSA,Total - Annual Screen 1.16 ng/mL (0.00-4.00); Potassium 4.5 mmol/L (3.5-5.1); Protein, Total 7.2 g/dL (6.4-8.2); Sodium Level 140 mmol/L (136-145); Thyroid Stim Hormone (TSH) 0.82 uIU/mL (0.358-3.74)
== END | disposition home or self-care (01) ==
PROVIDERS: PCP Family Medicine Geriatric Medicine; Referring Provider Family Medicine Geriatric Medicine; Visit Provider Family Medicine Geriatric Medicine
DX: E55.9 Vitamin D deficiency, unspecified (principal); I10 Essential (primary) hypertension; Z12.5 Encounter for screening for malignant neoplasm of prostate; M25.551 Pain in right hip
CPT/HCPCS: 36415; 73502; 80053; 82306; 84153; 84443; 85025; G0103

== ENCOUNTER 2021-02-03 07:16 | Outpatient (RCR) | payer MEDICARE, SELFPAY ==
[2020-09-10 10:10] VITALS: BMI 25.3
[2021-02-03] MEDS: COVID-19 VACC, MRNA(PFIZER)/PF 30 MCG/0.3 ML SYRINGE IM (10:15)
[2021-02-24] MEDS: COVID-19 VACC, MRNA(PFIZER)/PF 30 MCG/0.3 ML SYRINGE IM (09:47)
== END 2021-05-05 23:59 ==
LOC: IMMUN 07:16
PROVIDERS: PCP Family Medicine Geriatric Medicine; Referring Provider Family Medicine; Visit Provider Family Medicine
DX: Z23 Encounter for immunization (principal)
CPT/HCPCS: 0001A; 0002A; 91300

== ENCOUNTER → 2021-06-30 11:07 | Outpatient (CLI) | payer MEDICARE, SELFPAY ==
[2021-06-30 10:10] VITALS: BMI 26.9
--- NOTE | 2021-06-30 11:10 | RAD_ITS ---
STUDY: X-RAY - RIGHT HAND, ATTENTION THIRD FINGER REASON FOR EXAM: Male, 71 years old. Painful mass at the PIP joint of third digit. TECHNIQUE: 3 view(s) of the finger were obtained. COMPARISON: 01/14/2020. FINDINGS: Osteopenia. Moderate arthrosis of the MCP and PIP joints. Focal soft tissue swelling at the PIP joint likely representing a Gali''s node. RAD/Finger(s) Min 2 Views IMPRESSION: Osteopenia with osteoarthritic changes and focal soft tissue swelling at the PIP joint. No acute abnormality, erosive changes or periostitis. Electronically Signed: Jim Mccauley MD at 13:03 EDT , Service support ,
== END ==
PROVIDERS: PCP Family Medicine Geriatric Medicine; Referring Provider Surgery; Visit Provider Surgery
DX: M67.441 Ganglion, right hand (principal); M19.041 Primary osteoarthritis, right hand
CPT/HCPCS: 73140

== ENCOUNTER 2021-08-31 11:58 | Day surgery (SDC) | payer MEDICARE, SELFPAY ==
[2021-08-31] VITALS (7 sets, daily range): BP systolic 126–147; BP diastolic 69–78; PULSE 61–82; RESP 16; TEMP 35.1–36.4; O2SAT 95–98; BMI 26.2
--- NOTE | 2021-08-31 00:37 | PCM.HP.BLA ---
History and Physical Date of Admission: 08/31/21 HISTORY OF PRESENT ILLNESS 71 year old man presents with a soft tissue mass dorsal ulnar aspect right long finger at PIP joint that has increased in size over the last several months. He denies numbness. He denies fever. He denies trauma. He is able to make a fist. He has no trouble with activities of daily living. He is right hand dominant. He had an x-ray done on 06/30/21. It showed Osteopenia. Moderate arthrosis of the MCP and PIP joints. Focal soft tissue swelling at the PIP joint likely representing a Gali''s node. He presents today for further evaluation and treatment. PAST MEDICAL HISTORY Actinic keratosis Arthritis Benign keratosis Bone fracture Ganglion cyst of joint of finger of right hand Hearing problem Neoplasm of skin of lower leg Other specified disorders of the skin and subcutaneous tissue Personal history of colonic polyps Skin cancer Thyroid disease PAST SURGICAL HISTORY colonoscopy (~04/12/17) Actinic keratosis Skin cancer of face ALLERGIES No Known Allergies MEDICATIONS Tumeric levothyroxine acetaminophen citalopram multivitamin pravastatin FAMILY HISTORY Mother - Arthritis, Breast cancer, Diabetes, Hypertension, Cancer Father - High cholesterol, Melanoma, Bowel disease Grandfather - Lung cancer Grandmother - Cancer Aunt - Colon cancer SOCIAL HISTORY Smoking Status: Current every day smoker second hand exposure: No alcohol intake: never substance use type: does not use REVIEW OF SYSTEMS General - Denies fever, fatigue, and weight loss. Eyes - Denies cataracts and glaucoma. ENT - Denies nasal congestion and sore throat. Endocrine - Denies excessive thirst and urination. Skin - Has personal history of skin cancer. Has enlarging soft tissue mass dorsal ulnar aspect right long finger at PIP joint. Musculoskeletal - Denies joint pain, joint stiffness, weakness of muscles and joints, back pain, and arthritis. Neuro - Denies headaches. Cardiovascular - Denies chest pain, fatigue, and shortness of breath with exertion. Psych - Denies anxiety and depression. Respiratory - Denies chronic cough and shortness of breath. Patient is a former smoker. Gastrointestinal - Denies nausea, vomiting, diarrhea, and constipation. Hematologic - Denies abnormal bruising and bleeding. Genitourinary - Denies hematuria and urinary frequency. PHYSICAL EXAMINATION General - Alert and Oriented. HEENT - PERRL. EOMI. Throat is clear. Neck - Supple and nontender. No cervical adenopathy. Lungs - Clear to auscultation. Heart - Regular rate and rhythm. Abdomen - Soft and nondistended. Extremities - FROM. No axillary adenopathy. Radial pulses are palpable. Patient is right hand dominant. Fingers are warm with good capillary refill. On the dorsal ulnar aspect right long finger at PIP joint is a soft tissue mass that measures 1.3 cm. Some firmness to the mass. It is mobile. He can extend and flex the right long finger without problem. He can make a fist without problem. No sensory deficits to pinprick. No ulceration. Mass is nontender. Neuro - CN II-XII grossly intact. Psych - Normal mood and affect. ASSESSMENT 1. 1.3 cm soft tissue mass dorsal ulnar aspect right long finger at PIP joint, clinically consistent with a ganglion cyst. 2. Personal history of skin cancer. 3. Family history of skin cancer. 4. Former smoker. PLAN Patient has a soft tissue mass dorsal ulnar aspect right long finger at PIP joint. It is clinically consistent with a ganglion cyst. Other possibilities include a fibroma, a lipoma, a giant cell tumor of the tendon sheath, or a malignancy. Recommend excision of this soft tissue mass dorsal ulnar aspect right long finger at PIP joint. X-ray was done on 06/30/21. It showed Osteopenia. Moderate arthrosis of the MCP and PIP joints. Focal soft tissue swelling at the PIP joint likely representing a Gali''s node. Surgery can be done on an outpatient basis under [facility] anesthesia and tourniquet control. Tissue that is removed will be sent to Pathology for analysis to rule out carcinoma. He will have a bulky dressing on postoperatively. Will encourage range of motion exercises to minimize stiffness. If stiffness develops will need evaluation by OT for range of motion exercises, strengthening, and edema management. Patient was informed of the risks and complications of the procedure including alternatives to surgery. These were discussed with the patient personally. Patient voices understanding and wishes to proceed. Some of the risks and complications were included in a form from the [employer]. Some of the risks and complications that were discussed included but were not inclusive of failure to diagnose including symptom relief, pain, infection, numbness, stiffness, loss of digit, RSD (CRPS), need for further surgery, contracture, and wound healing problems. We discussed the current risks associated with COVID-19. While it is understood that there is a community spread of COVID-19, the risk of rickie COVID-[address] [facility] ([facility]) is very low; however, the risk cannot be completely mitigated because of the community spread of the disease. We discussed in detail the risk of exposure to and/or potential harm posed by the COVID-19 virus with having a surgery/procedure at this time versus the risk of delaying the surgery/procedure. It is not possible to know either the risk of delaying the surgery or procedure or chance of getting an infection with perfect accuracy, but a joint decision was made to proceed at this time with the scheduled surgery/procedure as indicated on the consent form. Patient was notified that we will need to comply with any screening or testing [facility] wishes to perform or that surgery may be delayed for any positive results. Procedure Criteria Procedure Type:?Elective COVID Risk Discussion: The surgeon/proceduralist and patient have discussed in detail the risk of exposure to and/or potential harm posed by the COVID-19 virus with having a surgery/procedure at this time versus the risk of delaying the surgery/procedure.? It is not possible to know either the risk of delaying the surgery or procedure or chance of getting an infection with perfect accuracy, but a joint decision was made between the patient and the surgeon/proceduralist to proceed at this time with the scheduled surgery/procedure as indicated on the consent form.
[2021-08-31] MEDS: Lactated Ringers 1,000 ML 100 ML IV (12:33)
--- NOTE | 2021-08-31 13:45 | GANG_PTH ---
PATIENT: YANE BUTCHER LOC: [facility] – [place] U#:[id number] AGE/SX: 71/M ROOM: RE08/31/[address]: Dr. Phani Crawford MD : 1950 BED: DIS: 08/31/2021 SPEC #: [id number] RECD: 08/31/21 15:43 STATUS: CARO REErmias #: [id number] TAE: 08/31/21 13:[address]: Phani Crawford DEPT: SURGICAL PATHOLOGY RECD BY: Corbin Kendrick ENTERED: 09/01/21 09:58 SP TYPE: GANGLION OTHR DR: Dr. Nixon Rios MD Tissues: GANGLION CYST Procedures: Decalcification bone/plaque Surgery Specimen Level III HEADER OPERATION: Excision soft tissue mass, right dorsal ulnar aspect long finger PRE-OP DIAGNOSIS: 1.3 cm soft tissue mass dorsal ulnar aspect right long finger at PIP joint, clinically consistent with ganglion cyst TISSUE SUBMITTED: Ganglion cyst right long finger at PIP joint MICROSCOPIC DIAGNOSIS Ganglion cyst right long finger at PIP joint: Fragments of skin, fibroadipose tissue and bone with reactive changes and focal changes suggestive of ganglion cyst. NIDIA:jr 09/04/2021 COMMENT Case has been reviewed in consultation with Dr. Siu who concurs with the above diagnosis. IDC:AM MICROSCOPIC DESCRIPTION Slides are reviewed. GROSS DESCRIPTION Received in fixative is one container labeled with the patient's name and designated ganglion cyst right long finger at PIP joint. The specimen consists of multiple pieces of soft tissue and bone that in aggregate measure 2.5 x 1 x 0.2 cm. A piece of skin is also noted measuring 1 x 0.3 x 0.3 cm. This piece appears to be sectioned in the middle. The entire specimen is submitted in one cassette after decalcification. / NIDIA:jr 09/01/21 TC:5 CPT: 67802, 35282
[2021-08-31] MEDS: Cefazolin 2 GM in 0.9% Normal Saline 100 ML IV (14:00)
[2021-08-31] MEDS: Lidocaine 1% /Epi 1:100 (20ml) 20 ML Vial (14:15)
[2021-08-31] MEDS: Mupirocin Ointment 22gm Tube 1 APPLIC (14:34)
--- NOTE | 2021-08-31 15:22 | PCM.OPRPT ---
Problems Associated Problem List Diagnoses (1) Ganglion cyst of joint of finger of right hand: (2) Personal history of skin cancer: (3) Family history of skin cancer: (4) Smoker: Report of Operation Date of Procedure: 08/31/21 Pre-Operative Diagnosis: 1. 1.3 cm soft tissue mass dorsal ulnar aspect right long finger at PIP joint, clinically consistent with a ganglion cyst. 2. Personal history of skin cancer. 3. Family history of skin cancer. 4. Smoker. Post-Operative Diagnosis: 1. 1.3 cm ganglion cyst dorsal ulnar aspect right long finger with extension to PIP joint. 2. Personal history of skin cancer. 3. Family history of skin cancer. 4. Smoker. Surgery/Procedure Performed:: Excision 1.3 cm ganglion cyst dorsal ulnar aspect right long finger with extension to PIP joint. Description of Surgical Findings:: 71 year old man presents with a soft tissue mass dorsal ulnar aspect right long finger at PIP joint that has increased in size over the last several months. He denies numbness. He denies fever. He denies trauma. He is able to make a fist. He has no trouble with activities of daily living. He is right hand dominant. He had an x-ray done on 06/30/21. It showed Osteopenia. Moderate arthrosis of the MCP and PIP joints. Focal soft tissue swelling at the PIP joint likely representing a Gali''s node. Patient was informed of the risks and complications of the procedure including alternatives to surgery. These were discussed with the patient personally. Patient voices understanding and wishes to proceed. Some of the risks and complications were included in a form from the [employer]. Encouraged patient to stop smoking as it may have deleterious effects on wound healing. Total tourniquet time - 46 minutes. Surgeon: Phani Crawford abstract clerk: None Type of Anesthesia: Local MAC (xylocaine with epinephrine digital metacarpal block and IV sedation.) Specimen's removed: Ganglion cyst dorsal ulnar aspect right long finger with extension to PIP joint to Pathology. Drains: None. Estimated Blood Loss (mL): 10. Description of Procedure: Patient was taken to OR in supine position and was given IV sedation. The right hand was prepped and draped in the usual fashion. SCD's were placed for DVT prophylaxis. Perioperative antibiotics were given intravenously. The right long finger was infiltrated with xylocaine and epinephrine as a digital metacarpal block. After waiting 5 minutes for the anesthetic to take effect, I proceeded with the surgery under loupe magnification. I placed a digital tourniquet around the base of the right long finger. An oblique incision was made over the mass with possibility of extension both proximally and distally in a zig zag fashion. I dissected the mass sharply down to the middle phalanx. Clinically it is consistent with a ganglion cyst. I dissected out the stalk as it traveled to the PIP joint. This necessitated extending the incision in a zig zag fashion proximally to get better exposure of the PIP joint. There were some bony spurs that were excised with a rongeur. A small cuff of capsular tissue was excised around this area to minimize recurrence. The soft tissue mass and bone were sent to Pathology for analysis to rule out carcinoma. The wound was irrigated with saline. The tourniquet was released after 46 minutes. Hemostasis was obtained with electrocautery and gauze compression. The zig zag incision was closed with 5-0 Nylon simple interrupted and vertical mattress interrupted sutures. Antibiotic ointment was applied to the incision followed by Xeroform gauze and 2x2 gauze. This was followed by a 2 inch Sharon compression dressing. At the end of the procedure there was no evidence of vascular compromise to the skin. Good capillary refill was noted on the finger tip. Patient tolerated the procedure well and was sent to PACU in satisfactory condition. Patient will be sent home on antibiotics and pain medication. He will keep his right hand elevated during the initial postoperative period. Patient will followup in a week for a wound check and for discussion of the pathology report. The sutures will be removed in two weeks. Grafts/Implants Used: None. Complications None. Admit VTE Documentation VTE Present on Admission: No VTE Mechan Device Prophylaxis: SCD's VTE Pharm Prophylaxis ordered?: No Addendum Addendum: Surgery Charges CPT - 40046 ICD-10 - M67.441, Z85.828, Z80.8, F17.200
--- NOTE | 2021-08-31 16:10 | PCM.DC ---
Discharge Instructions Diet Discharge Diet: No restrictions Activity Discharge Activity: May Shower (wear plastic bag over right hand when showering.) and - (no heavy lifting right hand.) May shower in (days): 1 (wear plastic bag over right hand when showering.) May resume sexual activity in: No Restrictions Weight Bearing Status: Weight bearing as tolerated Lifting Restrictions: 20 lbs. Keep extremity elevated above heart level: Right Arm Dressing / Incision Call your doctor if your incision/area has: Continuous Slow Oozing, Sudden Increased Bleeding, Increased Pain/ Swelling, Increased Redness and Swelling at the incision site Call your doctor if you observe: Fever of 101 or Higher, Coldness, Increased Pain, Shortness of breath, Chest pain, Calf discomfort and Uncontrolled pain Change Dressing in: do not change dressing (will remove operative dressing in the office.) Cleanse incision/area with: - (wear plastic bag over right hand when showering.) Follow Up Care Please Follow Up With: Phani Crawford MD When: one week. call [phone] for appt. Test Results: Test results from this visit will be discussed in further detail at your follow-up appointment, if applicable. Discharge Plan Admission Primary Reason for Your Visit: ganglion cyst right long finger at PIP joint. Attending Provider: Phani Crawford Primary Care Provider: Nixon Rios Chi Discharge Orders/Prescriptions Prescriptions: New doxycycline hyclate 100 mg capsule 100 mg PO BID Qty: 10 RF: 0 oxycodone-acetaminophen [Percocet] 5-325 mg tablet 1 tab PO Q6H PRN (Reason: pain (scale score 7-10)) 7 Days Qty: 28 RF: 0 L.acidoph,saliva-B.bif-S.therm [Acidophilus Probiotic Blend] 175 mg capsule 1 cap PO DAILY Qty: 10 RF: 0 Continued acetaminophen [Tylenol] 325 mg capsule 1,000 mg PO QHS RF: 0 citalopram 10 mg tablet 20 mg PO DAILY RF: 0 pravastatin 40 mg tablet 40 mg PO DAILY RF: 0 multivitamin [Daily Multi-Vitamin] Tablet 1 tab PO DAILY RF: 0 levothyroxine 75 MCG tablet 75 mcg PO DAILY RF: 0 Tumeric 500 mg PO DAILY RF: 0 ginkgo biloba 60 mg Capsule 60 mg PO BID RF: 0 cholecalciferol (vitamin D3) [Vitamin D3] 125 mcg (5,000 unit) Tablet 125 mcg PO DAILY RF: 0 Referrals / Follow Up: Nixon Rios Chi, MD [Primary Care Provider] - Disposition Disposition (needs filled in before D/C Order can be placed): Home, Self Care
== END 2021-08-31 16:40 | disposition home or self-care (01) ==
LOC: SDC 11:59 → AC 12:01
PROVIDERS: PCP Family Medicine Geriatric Medicine; Referring Provider Surgery; Visit Provider Surgery
PROC: (CPT 26160; principal; 2021-08-31 13:30)
DX: M67.441 Ganglion, right hand (principal); M19.90 Unspecified osteoarthritis, unspecified site; E07.9 Disorder of thyroid, unspecified; F32.9 Major depressive disorder, single episode, unspecified; E78.00 Pure hypercholesterolemia, unspecified; H91.90 Unspecified hearing loss, unspecified ear; M85.80 Other specified disorders of bone density and structure, unspecified site; Z86.010 Personal history of colon polyps; Z85.828 Personal history of other malignant neoplasm of skin; Z79.899 Other long term (current) drug therapy; Z87.891 Personal history of nicotine dependence
CPT/HCPCS: 01810; 26160; 88304; 88311; J7120; J2405

== ENCOUNTER → 2022-10-28 | Outpatient (CLI) | payer MEDICARE, SELFPAY | END | disposition home or self-care (01) | LOC: PSN 10:26 | PROVIDERS: PCP Family Medicine Geriatric Medicine; Visit Provider Family Medicine Geriatric Medicine | DX: R68.83 Chills (without fever) (principal) | CPT/HCPCS: 87635; 87804; 87807; C9803; U0003; U0005 ==

== ENCOUNTER 2023-06-03 08:01 | Day surgery (SDC) | payer MEDICARE, SELFPAY ==
[2023-06-03] MEDS: Lactated Ringers 1,000 ML 15 ML IV (08:15)
[2023-06-03 08:23] VITALS: BP 132/82; PULSE 61; RESP 18; TEMP 36.4; O2SAT 98; BMI 26.4
--- NOTE | 2023-06-03 09:16 | PCM.HP.STD ---
[facility] - General General Date of Service: 06/03/23 Chief Complaint: Personal history of colon polyps HPI Narrative BRENDON BUTCHER, is a 72 M who presents who presents via open access today for surveillance colonoscopy. He has a personal history of colon polyps. Sigmoid adenoma was identified March 2017 and the patient's most recent endoscopy was April 2018. [facility] Medical History (Updated 06/01/23 @ 14:42 by Nica Casillas) Actinic keratosis Actinic keratosis Arthritis Back pain Benign keratosis Bone fracture Cancer Depression Family history of skin cancer Former smoker Ganglion cyst of joint of finger of right hand Hearing problem High cholesterol History of pain when walking Neoplasm of skin of lower leg Other specified disorders of the skin and subcutaneous tissue Personal history of actinic keratosis Personal history of colonic polyps Skin cancer Skin lesion Smoker Thyroid disease Thyroid disease Wears glasses Home Medications Tumeric 500 mg PO DAILY 12/20/13 [History Last Taken Unknown] levothyroxine 75 mcg tablet 75 mcg PO DAILY 12/20/13 [History Last Taken 06/03/23] acetaminophen 325 mg capsule (Tylenol) 1,000 mg PO QHS 04/26/19 [History Last Taken Unknown] citalopram 10 mg tablet 20 mg PO DAILY 09/10/20 [History Last Taken Unknown] multivitamin (Daily Multi-Vitamin tablet) 1 tab PO DAILY 09/10/20 [History Last Taken Unknown] pravastatin 40 mg tablet 40 mg PO DAILY 09/10/20 [History Last Taken Unknown] cholecalciferol (vitamin D3) 125 mcg (5,000 unit) tablet (Vitamin D3) 125 mcg PO DAILY 08/24/21 [History Last Taken Unknown] ginkgo biloba 60 mg capsule 60 mg PO DAILY 08/24/21 [History Last Taken Unknown] Allergy/AdvReac Type Severity Reaction Status Date / Time No Known Allergies Allergy Verified 06/03/23 08:23 Family History Mother Arthritis Breast cancer Diabetes Hypertension Cancer Father High cholesterol Melanoma Bowel disease Grandfather Cancer Lung cancer Grandmother Cancer Aunt Colon cancer Surgical History Abnormal colonoscopy (~04/12/17) Actinic keratosis History of excision of lesion History of excision of lesion Hx of vasectomy Skin cancer of face Social History Smoking Status: Former smoker second hand exposure: No alcohol intake: never substance use type: does not use what type of physical activity do you participate in: walking, bicycling and weight training seatbelt use: always do you feel safe at home: Yes additional social history: SUN EXPOSURE: FREQUENTLY ROS Constitutional Constitutional: Reports systems reviewed and no addt'l complaints, except as documented Cardiovascular Cardiovascular: Denies chest pain Respiratory/Chest Respiratory/Chest: Denies shortness of breath at rest Gastrointestinal Gastrointestinal: Denies abdominal pain, change in bowel habits, hematochezia or melena Vital Signs Vital Signs Vital Signs: 06/03/23 08:23 06/03/23 08:23 Temperature 97.5 F L Temperature Source Temporal Pulse Rate 61 Respiratory Rate 18 Respiratory Pattern Normal Blood Pressure 132/82 H Blood Pressure Mean 98 Blood Pressure Source Monitor Blood Pressure Position Sitting Blood Pressure Location Left Arm Pulse Ox 98 Oxygen Delivery Method Room Air Weight Weight: 200 lb 13.458 oz Body Mass Index (BMI) 26.4 Assessment & Plan Assessment/Plan (1) Personal history of colonic polyps: PLAN: The patient presents via open access today for surveillance colonoscopy because of a personal history of colon polyps. He is aware of the technique, benefit, risk, alternatives. He has had an opportunity to ask and have questions answered. We will proceed as noted. He has no complaints or concerns today. We will proceed as noted. Brendon Goncalves M.D., F.A.C.S.
--- NOTE | 2023-06-03 09:44 | OP.COLON_ITS ---
Patient Name: Brendon Ingram Procedure Date: 06/03/2023 9:25 AM Date of : 1950 Age: 72 Procedure: Colonoscopy Indications: High risk colon cancer surveillance: Personal history of colonic polyps Providers: Brendon Goncalves MD Referring MD: Brendon Goncalves MD Patient Profile: Last Colonoscopy: April 2018. Complications: No immediate complications. Procedure: Pre-Anesthesia Assessment: - Prior to the procedure, a History and Physical was performed, and patient medications and allergies were reviewed. The patient's tolerance of previous anesthesia was also reviewed. The risks and benefits of the procedure and the sedation options and risks were discussed with the patient. All questions were answered, and informed consent was obtained. Prior Anticoagulants: The patient has taken no previous anticoagulant or antiplatelet agents. ASA Grade Assessment: II - A patient with mild systemic disease. After reviewing the risks and benefits, the patient was deemed in satisfactory condition to undergo the procedure. After I obtained informed consent, the scope was passed under direct vision. Throughout the procedure, the patient's blood pressure, pulse, and oxygen saturations were monitored continuously. The adult colonoscope was introduced through the anus and advanced to the cecum, identified by appendiceal orifice and ileocecal valve. The colonoscopy was performed without difficulty. The patient tolerated the procedure well. The quality of the bowel preparation was good. The ileocecal valve and the appendiceal orifice were photographed. Scope In: 9:29:01 AM Scope Withdrawal Time 0 hours 7 minutes 29 seconds Scope Out: 9:40:46 AM Total Procedure Duration Time 0 hours 11 minutes 45 seconds Findings: The digital rectal exam findings include non-thrombosed external hemorrhoids, non-thrombosed internal hemorrhoids and internal hemorrhoids that prolapse with straining, but spontaneously regress to the resting position (Grade II). Pertinent negatives include normal prostate (size, shape, and consistency). Multiple diverticula were found in the sigmoid colon and descending colon. The exam was otherwise without abnormality. Impression: - Non-thrombosed external hemorrhoids, non-thrombosed internal hemorrhoids and internal hemorrhoids that prolapse with straining, but spontaneously regress to the resting position (Grade II) found on digital rectal exam. - Diverticulosis in the sigmoid colon and in the descending colon. - The examination was otherwise normal. - No specimens collected. Recommendation: - Discharge patient to home. - Resume previous diet. - Continue present medications. - Repeat colonoscopy in 5 years for surveillance. Procedure Code(s): --- Professional --- 39848, Colonoscopy, flexible; diagnostic, including collection of specimen(s) by brushing or washing, when performed (separate procedure) Diagnosis Code(s): --- Professional --- Z86.010, Personal history of colonic polyps K64.1, Second degree hemorrhoids K64.4, Residual hemorrhoidal skin tags K57.30, Diverticulosis of large intestine without perforation or abscess without bleeding CPT copyright 2017 [employer]. All rights reserved. The codes documented in this report are preliminary and upon mannequin molder review may be revised to meet current compliance requirements. Brendon Goncalves MD 06/03/2023 9:44:29 AM This report has been signed electronically. Number of Addenda: 0 Note Initiated On: 06/03/2023 9:25 AM
[2023-06-03 09:45] VITALS: BP 117/62; BP 132/82; PULSE 66; RESP 16; TEMP 36.8; O2SAT 96
--- NOTE | 2023-06-03 09:45 | OP.CCLET_ITS ---
06/03/2023 Nixon Rios MD [address] [place] [address] Re : Colonoscopy procedure for Brendon Ingram Dear Dr. Rios This procedure was performed on Saturday, June 03, 2023. My impressions and recommendations are as follows: Impressions : - Non-thrombosed external hemorrhoids, non-thrombosed internal hemorrhoids and internal hemorrhoids that prolapse with straining, but spontaneously regress to the resting position (Grade II) found on digital rectal exam. - Diverticulosis in the sigmoid colon and in the descending colon. - The examination was otherwise normal. - No specimens collected. Recommendations : - Discharge patient to home. - Resume previous diet. - Continue present medications. - Repeat colonoscopy in 5 years for surveillance. My findings are described in the full procedure note, which is enclosed. If I can be of further assistance, please feel free to contact me at Doctor phone number(s): Work: . Sincerely, Brendon Goncalves MD 06/03/2023 9:44:29 AM This report has been signed electronically.
[2023-06-03 09:50] VITALS: BP 106/58; BP 132/82; PULSE 63; RESP 16; O2SAT 97
[2023-06-03 09:55] VITALS: BP 130/73; BP 132/82; PULSE 65; RESP 16; O2SAT 96
[2023-06-03 10:01] VITALS: BP 130/73; BP 132/82; PULSE 64; RESP 16; TEMP 36.4; O2SAT 96
[2023-06-03 10:16] VITALS: BP 132/82
== END 2023-06-03 10:18 | disposition home or self-care (01) ==
LOC: EN 08:04 → AC 08:05
PROVIDERS: PCP Family Medicine Geriatric Medicine; Referring Provider Family Medicine Geriatric Medicine; Visit Provider Surgery
PROC: 0DJD8ZZ Inspection of Lower Intestinal Tract, Via Natural or Artificial Opening Endoscopic (ICD-10-PCS; CPT 45378; principal; 2023-06-03 09:10)
DX: Z12.11 Encounter for screening for malignant neoplasm of colon (principal); K64.1 Second degree hemorrhoids; K64.4 Residual hemorrhoidal skin tags; K57.30 Diverticulosis of large intestine without perforation or abscess without bleeding; E78.00 Pure hypercholesterolemia, unspecified; E03.9 Hypothyroidism, unspecified; Z79.899 Other long term (current) drug therapy; Z87.891 Personal history of nicotine dependence; Z86.010 Personal history of colon polyps; Z80.0 Family history of malignant neoplasm of digestive organs
CPT/HCPCS: 45378; J7120; J2405

== ENCOUNTER 2024-05-04 08:09 | Day surgery (SDC) | payer MEDICARE, OTHER, SELFPAY ==
--- NOTE | 2024-05-04 08:20 | PCM.PRE.AN2 ---
ASA Classification* ASA Classification ASA Classification: 3 Assessment & Plan Anesthesia* History Source History Obtained from:: Patient and Chart Anesthesia Assessment Anesthesia Assessment: Discussed sedation and/or anesthesia options, risks, benefits, and alternatives with patient/parents/legal guardian. Questions invited. The patient/parents/legal guardian/POA seems to understand and agrees to proceed with anesthesia plan. Reviewed the physical assessment, medical history, allergy history and patient home medications list prior to surgery/procedure/anesthetic and documented any changes. Performed airway and anesthesia risk assessments. 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 When Was Last Pacemaker Check QUESTION #4 FULL TEXT: You/Your Family Experience fever (hyperthermia) with Anesthesia Last Oral Intake Last Oral intake: Last Oral Intake NPO since Meds taken in AM with sips of water? Meds patient instructed to take am of surgery PONV PONV - packer inspector: PONV - packer inspector Female No 05/02/24 15:33 HX of Motion Sickness Yes 05/02/24 15:33 HX of N/V After Surgery No 05/02/24 15:33 Non-Smoker Yes 05/02/24 15:33 Duration of Surgery greater Yes 05/02/24 15:33 than 60 minutes Number of Risk Factors 3 05/02/24 15:33 PONV Score Moderate Risk 05/02/24 15:33 Height & Weight Height & Weight: Anesthesia: Height & Weight Height 1.85 m 05/01/24 11:52 Respiratory Assessment Respiratory Assessment - packer inspector: Respiratory Tract Infection Hx - packer inspector Hx Respiratory Tract Infection No 05/02/24 15:33 STOP Sleep Apnea STOP Sleep Apnea - packer inspector: STOP Sleep Apnea - packer inspector Hx Hypertension No 05/02/24 15:33 Hx Sleep Apnea No 05/02/24 15:33 CPAP No 08/31/21 15:18 BIPAP No 08/24/21 11:10 Do you snore loudly (louder No 05/02/24 15:33 than talking or can be heard Do you often feel tired/ No 05/02/24 15:33 fatigued/ sleepy during daytime? Has anyone observed you stop No 05/02/24 15:33 breathing during sleep? STOP Results Negative 05/02/24 15:33 QUESTION #5 FULL TEXT : Do you snore loudly (louder than talking or can be heard through closed doors)? 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 Specify any problems Hx of Preganancy in last 3 N/A 05/02/24 15:33 Months Nurse Filling Out Transfusion DSCHRIBER 05/02/24 15:33 & Questions: Date: 05/02/24 05/02/24 15:33 Time: 15:35 05/02/24 15:33 Patient unable to answer at this time (ie. confused, unrespo /Reproduction History /Reproductive History - packer inspector: /Reproductive Hx- packer inspector Hx Now No 05/02/24 15:33 Gestational Age (in weeks): EDC: Hx Hx Para Hx Section SAB No 05/02/24 15:33 Anesthesia Focused Assessment* Temperature: 1 F Pulse Rate: 1 Blood Pressure: 1/1 Respiratory Rate: 1 Pulse Ox: 1 Oxygen Delivery Method: Room Air Airway Assessment Mouth opens (cm): 3 Mallampati Score: II Teeth Condition: Intact, Caps/Crowns, Chipped/Broken, Dentures, Full, Loose, Lower, Missing, Partial and Upper Neck Range of motion (ROM): Full ROM Pertinent Findings EKG Pertinent Findings:: TEST EKG Stress Test Pertinent Findings:: TEST tress ECHO Pertinent Findings:: Test Echo Cath Results Pertinent Findings:: TeST Cath Consults Pertinent Findings:: Test consult Spirometer Pertinent Findings:: Test Spirometer Chest Film Results Pertinent Findings:: Test Chest Other Pertinent Findings:: Test other Focused Labs Anesthesia Preop lab: CBC WBC 6.6 K/mm3 (4.4-11.0) 07/14/20 10:56 RBC 4.70 M/mm3 (4.6-6.2) 07/14/20 10:56 Hgb 14.6 g/dL (13.0-16.5) 07/14/20 10:56 Hct 45.6 % (40-54) 07/14/20 10:56 Plt Count 180 K/mm3 (150-450) 07/14/20 10:56 CHEMISTRY Potassium 4.5 mmol/L (3.5-5.1) 07/14/20 10:56 Sodium 140 mmol/L (136-145) 07/14/20 10:56 BUN 17 mg/dL (7-18) 07/14/20 10:56 Creatinine 0.95 mg/dL (0.70-1.30) 07/14/20 10:56 Glucose 76 mg/dL (74-106) 07/14/20 10:56 TSH 0.82 uIU/mL (0.358-3.74) 07/14/20 10:56 COAG Review of Systems (Anesthesia) ROS Narrative System reviewed and no additional complaints, except as documented. [facility] Medical History Tinnitus Anxiety Cutaneous horn Neoplasm of skin of upper arm Dysesthesia Mass of chin Personal history of actinic keratosis Delayed surgical wound healing Smoker Wears glasses Cancer Depression Thyroid disease High cholesterol Former smoker Ganglion cyst of joint of finger of right hand Neoplasm of skin of lower leg Family history of skin cancer Other specified disorders of the skin and subcutaneous tissue Actinic keratosis Personal history of colonic polyps Benign keratosis Skin lesion Actinic keratosis Skin cancer Arthritis Home Medications ?Medication ?Instructions ?Recorded ?Last Taken ?Type levothyroxine 75 mcg tablet 75 mcg PO DAILY 12/20/13 06/03/23 History citalopram 10 mg tablet 20 mg PO DAILY 09/10/20 Unknown History multivitamin (Daily Multi-Vitamin 1 tab PO DAILY 09/10/20 Unknown History tablet) pravastatin 40 mg tablet 40 mg PO QHS 09/10/20 Unknown History cholecalciferol (vitamin D3) 125 125 mcg PO DAILY 08/24/21 Unknown History mcg (5,000 unit) tablet (Vitamin D3) Allergy/AdvReac Type Severity Reaction Status Date / Time No Known Allergies Allergy Verified 05/02/24 15:31 Family History Mother Arthritis Breast cancer Diabetes Hypertension Cancer Father High cholesterol Melanoma Bowel disease Grandfather Cancer Lung cancer Grandmother Cancer Aunt Colon cancer Surgical History Hx of right cataract extraction Hx of left cataract extraction History of excision of lesion History of excision of lesion Hx of vasectomy Abnormal colonoscopy (~04/12/17) Actinic keratosis Skin cancer of face Social History Smoking Status: Former smoker second hand exposure: No alcohol intake: never substance use type: does not use what type of physical activity do you participate in: walking, bicycling and weight training seatbelt use: always do you feel safe at home: Yes additional social history: SUN EXPOSURE: FREQUENTLY
[2024-05-04 08:30] VITALS: BP 150/83; PULSE 62; RESP 16; TEMP 36.4; O2SAT 99; BMI 27.6
[2024-05-04] MEDS: Lactated Ringers 1,000 ML 15 ML IV ×2 (08:46→13:07)
[2024-05-04] MEDS: Lidocaine 1% /Epi 1:100 (50ml) 50 ML VIAL (10:51)
[2024-05-04] MEDS: Mupirocin Ointment 22gm Tube 1 APPLIC (10:51)
[2024-05-04] MEDS: Cefazolin 2 GM in 0.9% Normal Saline (100mL Bag) 100 ML IV (11:11)
--- NOTE | 2024-05-04 12:00 | LES_PTH ---
PATIENT: YANE BUTCHER LOC: [facility] U#:[id number] AGE/SX: 73/M ROOM: RE05/04/[address]: Dr. Phani Crawford MD : 1950 BED: DIS: 05/04/2024 SPEC #: [id number] RECD: 05/04/24 13:12 STATUS: CARO NASIMA #: [id number] TAE: 05/04/24 12:[address]: Phani Crawford DEPT: SURGICAL PATHOLOGY RECD BY: Dangelo Ruggiero ENTERED: 05/04/24 13:12 SP TYPE: Lesion OTHR DR: Dr. Nixon Rios MD Tissues: A - Skin of arm B - Skin of face, NOS C - Skin of arm Procedures: Frozen Section (charge) Surgery Specimen Level IV HEADER OPERATION: Excision cutaneous horn lesion right lateral arm with frozen section PRE-OP DIAGNOSIS: Cutaneous horn lesion right lateral arm, soft tissue mass left lateral chin byn Fofana labial crease TISSUE SUBMITTED: A- Right lateral cutaneous horn lesion lateral arm, B- 2 mass left lateral chin by Fofana labial crease suture tag 12 o'clock, C- 3 additional margin keratosis right lateral arm suture tag at 12 o'clock FROZEN SECTION DIAGNOSIS A. Right lateral arm lesion, biopsy: Actinic keratosis. MICROSCOPIC DIAGNOSIS A. Skin lesion of right lateral arm, biopsy: Actinic keratosis and solar elastosis. Mild chronic inflammation. B. Skin lesion of lateral chin, biopsy: Verrucoid keratosis and solar elastosis. C. Right lateral arm, additional margin, biopsy: Focal actinic change. Solar elastosis. AM/ 05/08/2024 MICROSCOPIC DESCRIPTION Slides are reviewed. GROSS DESCRIPTION A. Received fresh for frozen section diagnosis labeled with the patient's name is a specimen designated Right lateral cutaneous horn lesion lateral arm. The specimen consists of a piece of huston-white skin measuring 0.7 x 0.6 x 0.4cm. The specimen is marked at the 12o'clock. The specimen is inked as follows: 12o'clock- yellow, 6o'clock- green, 3o'clock-black, 9o'clock- blue. The specimen is serially sectioned and submitted entirely for frozen section diagnosis in one cassette. [facility] 05/04/2024 B. Received in fixative is one container labeled with the patient's name and designated Left lateral chin by Fofana labial crease at 12o'clock . The specimen consists of a piece of huston-white skin ellipse measuring 1.0 x 0.5cm and up to 0.7cm in thickness. The specimen is inked as follows: 12o'clock-yellow, 6o'clock- green, 3o'clock- black, 9o'clock-yellow. The specimen is serially sectioned and submitted entirely in one cassette. [facility] 05/07/2024 C. Received in fixative is one container labeled with the patient's name and designated Additional margin keratosis right lateral arm. The specimen consists of huston-white skin ellipse measuring 2.3 x 1.0cm and up to 0.6cm in thickness. The center of an ulcerated area measuring 1.0 x 0.5cm consistent with previous biopsy. The specimen is inked as follows: 12o'clock tip-yellow, 6o'clock tip- green, 3o'clock margin- black, 9o'clock margin- blue. The specimen is serially sectioned and submitted entirely in one cassette. [facility] 05/07/2024 TC:5 CPT:31802i2,53471
--- NOTE | 2024-05-04 12:00 | LES_PTH ---
PATIENT: YANE BUTCHER LOC: [facility] U#:[id number] AGE/SX: 73/M ROOM: RE05/04/[address]: Dr. Phani Crawford MD : 1950 BED: DIS: 05/04/2024 SPEC #: [id number] RECD: 05/04/24 13:12 STATUS: CARO NASIMA #: [id number] TAE: 05/04/24 12:[address]: Phani Crwaford DEPT: SURGICAL PATHOLOGY RECD BY: Dangelo Ruggiero ENTERED: 05/04/24 13:12 SP TYPE: Lesion OTHR DR: Dr. Nixon Rios MD Tissues: A - Skin of arm B - Skin of face, NOS C - Skin of arm Procedures: Frozen Section (charge) Surgery Specimen Level IV HEADER OPERATION: Excision cutaneous horn lesion right lateral arm with frozen section PRE-OP DIAGNOSIS: Cutaneous horn lesion right lateral arm, soft tissue mass left lateral chin byn Fofana labial crease TISSUE SUBMITTED: A- Right lateral cutaneous horn lesion lateral arm, B- 2 mass left lateral chin by Fofana labial crease suture tag 12 o'clock, C- 3 additional margin keratosis right lateral arm suture tag at 12 o'clock FROZEN SECTION DIAGNOSIS A. Right lateral arm lesion, biopsy: Actinic keratosis. / 05/04/2024 MICROSCOPIC DIAGNOSIS A. Skin lesion of right lateral arm, biopsy: Actinic keratosis and solar elastosis. Mild chronic inflammation. B. Skin lesion of lateral chin, biopsy: Verrucoid keratosis and solar elastosis. C. Right lateral arm, additional margin, biopsy: Focal actinic change. Solar elastosis. / 05/08/2024 MICROSCOPIC DESCRIPTION Slides are reviewed. GROSS DESCRIPTION A. Received fresh for frozen section diagnosis labeled with the patient's name is a specimen designated Right lateral cutaneous horn lesion lateral arm. The specimen consists of a piece of huston-white skin measuring 0.7 x 0.6 x 0.4cm. The specimen is marked at the 12o'clock. The specimen is inked as follows: 12o'clock- yellow, 6o'clock- green, 3o'clock-black, 9o'clock- blue. The specimen is serially sectioned and submitted entirely for frozen section diagnosis in one cassette. [facility] 05/04/2024 B. Received in fixative is one container labeled with the patient's name and designated Left lateral chin by Fofana labial crease at 12o'clock . The specimen consists of a piece of huston-white skin ellipse measuring 1.0 x 0.5cm and up to 0.7cm in thickness. The specimen is inked as follows: 12o'clock-yellow, 6o'clock- green, 3o'clock- black, 9o'clock-yellow. The specimen is serially sectioned and submitted entirely in one cassette. [facility] 05/07/2024 C. Received in fixative is one container labeled with the patient's name and designated Additional margin keratosis right lateral arm. The specimen consists of huston-white skin ellipse measuring 2.3 x 1.0cm and up to 0.6cm in thickness. The center of an ulcerated area measuring 1.0 x 0.5cm consistent with previous biopsy. The specimen is inked as follows: 12o'clock tip-yellow, 6o'clock tip- green, 3o'clock margin- black, 9o'clock margin- blue. The specimen is serially sectioned and submitted entirely in one cassette. [facility] 05/07/2024 TC:5 CPT:[id number]
--- NOTE | 2024-05-04 12:44 | PCM.OPRPT ---
Problems Associated Problem List Diagnoses (1) Cutaneous horn: (2) Neoplasm of skin of upper arm: (3) Actinic keratosis: (4) Mass of chin: (5) Dysesthesia: (6) Personal history of skin cancer: (7) Personal history of actinic keratosis: (8) Family history of skin cancer: (9) Former smoker: Report of Operation Date of Procedure: 05/04/24 Pre-Operative Diagnosis: 1. 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 2. 0.5 cm painful soft tissue mass left chin by melolabial fold. 3. Personal history of actinic keratosis. 4. Personal history of skin cancer. 5. Family history of skin cancer. 6. Former smoker. Post-Operative Diagnosis: 1. 0.5 cm recurrent actinic keratosis right lateral arm. 2. 0.5 cm painful soft tissue mass left chin by melolabial fold. 3. Personal history of actinic keratosis. 4. Personal history of skin cancer. 5. Family history of skin cancer. 6. Former smoker. Surgery/Procedure Performed:: 1. Excision 0.5 cm recurrent actinic keratosis right lateral arm with 3 cm layered closure. 2. Excision 0.5 cm painful soft tissue mass left chin in melolabial fold with 1.5 cm layered closure. Description of Surgical Findings:: The patient comes in today for evaluation for TBSE.? ? He recently completed Aldara therapy to lesions (right lateral arm, volar ulnar aspect right mid forearm, dorsal aspect right mid forearm, dorsal ulnar aspect right mid forearm, distal, and left lateral back). He tolerated the treatment without problems. Recently he has notice some crusting returning to the lesion right lateral arm. He had surgery on 05/29/19 where he underwent excision 7 mm actinic keratosis left lateral radial elbow with rhomboid transposition skin flap reconstruction and intradermal excision 4 mm actinic keratosis left jehovah's witness and intradermal excision 6 mm hyperkeratosis left lateral forehead by eyebrow and intradermal excision 4 mm actinic keratosis left lateral forehead by hairline.? Pathology showed actinic keratosis.? The lesions (left lateral forehead by eyebrow, left lateral forehead by hairline, left jehovah's witness, and right jehovah's witness) were treated with Aldara. He hasn't notice any changes in these areas to suggest recurrence.? He hasn't noticed any problems with the healed scar on his left lateral radial elbow. He hasn't noticed any changes in the lesions on the dorsum left foot between the 3rd and 4th toes that has uniform pigmentation and regular borders and also a lesion on his left lateral neck that has uniform pigmentation and regular borders.? He has no complaints about his scar on his left lateral upper eyelid after excision of actinic keratosis with atypia back in November 2013.? His lesion on his volar radial aspect right mid forearm remains stable with no changes at this time.? He has not noticed any changes in the previous lesions that were clinical benign keratoses that we were observing namely the left posterior leg, left supra-umbilical area, left lower cheek, left temporal scalp by hairline. He also noticed a lesion on his right lateral chest wall that has become slightly raised in configuration. He denies trauma. He denies recent infection. ? He also complains of a soft tissue mass left chin in melolabial fold that becomes irritated and painful after he shaves. He denies recent infection. He presents today for further evaluation and treatment. Patient was informed of the risks and complications of the procedure including alternatives to surgery. These were discussed with the patient personally. Patient voices understanding and wishes to proceed. Some of the risks and complications were included in a form from the [employer]. Potential risks and complications included but not inclusive of bleeding, infection, seroma, hematoma, bruising, swelling, loss of sensation to skin, wound breakdown, need for wound care, poor scarring, poor aesthetic outcome, intra operative cardiac or neurologic events, DVT, PE, and reaction to anesthesia.? Frozen section right lateral arm - actinic keratosis and no carcinoma seen. Surgeon: Phani Crawford MD nut dehydrator operator: None Type of Anesthesia: General Anesthesiologist: Srikanth Ness MD and Dione Cote CRNA Specimen's removed: 1. Actinic cutaneous horn lesion right lateral arm to Pathology as a frozen section. 2. Painful soft tissue mass left chin by melolabial fold. 3. Actinic keratosis right lateral arm to Pathology. Drains: None. Estimated Blood Loss (mL): 20. Description of Procedure: Patient was taken to OR in supine position and was placed under general anesthesia. The right lateral arm and left chin areas were prepped and draped in the usual fashion. SCD's were placed for DVT prophylaxis. Perioperative antibiotics were given intravenously. Using xylocaine with epinephrine, the lesions right lateral arm and left chin by melolabial fold were infiltrated. After waiting 5 minutes for the anesthetic to take effect, I made a circular incision around the cutaneous horn lesion right lateral arm as a full thickness excision into the subcutaneous tissue. With cutaneous horn lesions, if a focus of carcinoma is present, it is usually at the base so a shave biopsy would be inadequate. A suture was marked at the 12 oclock position for pathology orientation. The cutaneous horn lesion was then sent to Pathology for analysis as a frozen section to evaluate for carcinoma. If carcinoma is present, then further excision will be done with skin flap reconstruction. While this lesion was being evaluated by Pathology, I went to the left chin to excise the painful soft tissue mass. I made an oblique incision over this mass that was parallel to the melolabial fold. The lesion was firm and an elliptical excision was made into the subcutaneous tissue. The lesion was excised and a suture was marked at 12 oclock position for pathology orientation. It was sent to Pathology for analysis to rule out carcinoma. Hemostasis was obtained with electrocautery. The lesion was excised with a 1 mm margin in all directions thus making it a 0.7 cm excision with a 1.5 cm layered closure. The wound was closed in an intermediate layered fashion with 5-0 Monocryl interrupted sutures for the deep dermis and subcutaneous tissue. The skin was approximated with 6-0 Prolene simple interrupted sutures. Antibiotic ointment was applied to the suture line followed by 2x2 gauze dressing. Frozen section was now available, and it showed an actinic keratosis and no carcinoma seen. Because this was a recurrent actinic keratosis, I went ahead and excised a little more margin in all directions as I marked out a longitudinal ellipse to be excised to aid in wound closure. After the additional margin was excised, it was marked at 12 oclock position for pathology orientation. It was then sent to Pathology for analysis to rule out carcinoma. The lesion was excised with a 3 mm margin in all directions thus making it a 1.1 cm excision with a 3 cm layered closure. Hemostasis was obtained with electrocautery. The wound was closed in an intermediate layered fashion with 3-0 Monocryl interrupted sutures for the deep dermis and subcutaneous tissue. The skin was approximated with 4-0 Prolene simple interrupted sutures. Antibiotic ointment was applied to the suture line followed by 4x4 gauze and a compression emili wrap. Patient tolerated the procedure well and was sent to PACU in satisfactory condition. Patient will be sent home on antibiotics and pain medication. He will keep his head elevated during the initial postoperative period. Patient will followup in a week for a wound check and for discussion of the pathology report and for removal of the left chin sutures. The right lateral arm sutures will be removed in two weeks. Grafts/Implants Used: None. Procedure Start Time: 11:44 Procedure Stop Time: 12:52 Complications None. Admit VTE Documentation VTE Present on Admission: No VTE Mechan Device Prophylaxis: SCD's Addendum Addendum: Surgery Charges CPT - 79030 ICD-10 - L85.8, D49.2, L57.0, Z85.828, Z87.2, Z80.8, Z87.891 85010 L85.8, D49.2, L57.0, Z85.828, Z87.2, Z80.8, Z87.891 81816 R22.0, R20.8, Z85.828, Z87.2, Z80.8, Z87.891 39500 R22.0, R20.8, Z85.828, Z87.2, Z80.8, Z87.891
--- NOTE | 2024-05-04 12:45 | PCM.DC ---
Discharge Instructions Diet Discharge Diet: No restrictions Activity Discharge Activity: May Drive (when not taking pain medication.), May Shower (in two days.) and - (keep head elevated. no heavy lifting.) May shower in (days): 2 May resume sexual activity in: No Restrictions Ice area for (Minutes): 5 (as needed for chin swelling.) Weight Bearing Status: Weight bearing as tolerated Lifting Restrictions: 20 lbs. Keep extremity elevated above heart level: - (elevate head.) Dressing / Incision Call your doctor if your incision/area has: Continuous Slow Oozing, Sudden Increased Bleeding, Increased Pain/ Swelling, Increased Redness, Foul Smelling Discharge and Swelling at the incision site Call your doctor if you observe: Fever of 101 or Higher, Coldness, Increased Pain, Shortness of breath, Chest pain, Calf discomfort and Uncontrolled pain Suture Line Care: - (apply antibiotic ointment to suture lines daily after the operative dressings removed, (left chin, right lateral arm).) Remove Dressing in: 2 days (after dressing change, reapply emili wrap to right arm.) Cleanse incision/area with: Soap & Water (may get incisions wet in the shower in two days.) Follow Up Care Please Follow Up With: Phani Crawford MD When: one week. call [phone] for appt. Test Results: Test results from this visit will be discussed in further detail at your follow-up appointment, if applicable. Discharge Plan Admission Primary Reason for Your Visit: excision actinic keratosis right lateral arm and excision lesion left chin. Attending Provider: Phani Crawford Primary Care Provider: Nixon Rios Chi Instructions Print Language: Romansh Discharge Orders/Prescriptions Prescriptions: New cefadroxil 500 mg capsule 500 mg PO BID Qty: 10 0RF L.acidoph,saliva-B.bif-S.therm [Acidophilus Probiotic Blend] 175 mg capsule 1 cap PO DAILY Qty: 15 0RF oxycodone-acetaminophen [Percocet] 5-325 mg tablet 1 tab PO Q6H PRN (Reason: pain (scale score 7-10)) 5 Days Qty: 20 0RF Rx Instructions: 20 tabs (twenty) Continued citalopram 10 mg tablet 20 mg PO DAILY pravastatin 40 mg tablet 40 mg PO QHS multivitamin [Daily Multi-Vitamin] Tablet 1 tab PO DAILY levothyroxine 75 MCG tablet 75 mcg PO DAILY cholecalciferol (vitamin D3) [Vitamin D3] 125 mcg (5,000 unit) Tablet 125 mcg PO DAILY Referrals / Follow Up: Phani Crawford MD [Med Staff - Active Staff] - In 1 Week Nixon Rios Chi, MD [Primary Care Provider] - Disposition Disposition (needs filled in before D/C Order can be placed): Home, Self Care
[2024-05-04 12:56] VITALS: BP 150/83; BP 166/92; PULSE 70; RESP 18; TEMP 36.1; O2SAT 93
[2024-05-04 13:00] VITALS: BP 150/83; BP 157/84; PULSE 62; RESP 16; O2SAT 95
[2024-05-04 13:05] VITALS: BP 150/83; BP 155/78; PULSE 62; RESP 16; O2SAT 95
[2024-05-04 13:11] VITALS: BP 150/83; BP 166/90; PULSE 62; RESP 16; TEMP 36.3; O2SAT 94
[2024-05-04 13:34] VITALS: BP 150/83
== END 2024-05-04 13:46 | disposition home or self-care (01) ==
LOC: SDC 08:16 → AC 08:16
PROVIDERS: PCP Family Medicine Geriatric Medicine; Referring Provider Surgery; Visit Provider Surgery
PROC: (CPT 11402; principal; 2024-05-04 10:10)
DX: C44.602 Unspecified malignant neoplasm of skin of right upper limb, including shoulder (principal); L57.0 Actinic keratosis; F32.A Depression, unspecified; E07.9 Disorder of thyroid, unspecified; E78.00 Pure hypercholesterolemia, unspecified; L85.8 Other specified epidermal thickening; D49.2 Neoplasm of unspecified behavior of bone, soft tissue, and skin; R22.0 Localized swelling, mass and lump, head; Z87.891 Personal history of nicotine dependence; Z79.899 Other long term (current) drug therapy; Z87.2 Personal history of diseases of the skin and subcutaneous tissue; Z80.8 Family history of malignant neoplasm of other organs or systems
CPT/HCPCS: 11402; 12032; 11441; 12051; 00300; 88305; 88331; J7120; J2405

== ENCOUNTER → 2024-12-07 | Outpatient (CLI) | payer MEDICARE, OTHER, SELFPAY ==
--- NOTE | 2024-12-07 | LES_PTH ---
PATIENT: YANE BUTCHER LOC: [facility] U#:[id number] AGE/SX: 74/M ROOM: RE12/07/[address]: RO Ragland : 1950 BED: DIS: 12/07/2024 SPEC #: [id number] RECD: 12/07/24 10:13 STATUS: CARO NASIMA #: [id number] TAE: 12/07/24 00:[address]: Erin Portillo NP DEPT: SURGICAL PATHOLOGY RECD BY: Navya Woods Tissues: A - Skin of arm B - Skin of arm Procedures: Surgery Specimen Level IV HEADER OPERATION: Punch biopsy PRE-OP DIAGNOSIS: Lesions, forearm TISSUE SUBMITTED: A- Right forearm - ulnar, B- Right distal forearm by wrist MICROSCOPIC DIAGNOSIS A. Right forearm lesion, ulnar, punch biopsy: Mild actinic keratosis. Solar elastosis. Negative for malignancy. B. Right distal forearm by wrist lesion, punch biopsy: Mild actinic keratosis. Solar elastosis. Negative for malignancy. NIDIA. 12/10/2024 MICROSCOPIC DESCRIPTION Slides are reviewed. GROSS DESCRIPTION A. Received in fixative is one container labeled with the patient's name and designated Right mid forearm. The specimen consists of a punch biopsy of huston-white skin measuring 0.5cm in length and 0.3cm in diameter. The entire specimen is submitted in one cassette. B. Received in fixative is one container labeled with the patient's name and designated Right distal forearm . The specimen consists of a punch biopsy of huston-white skin measuring 0.4cm in length and 0.3cm in diameter. The entire specimen is submitted in one cassette. NIDIA. 12/07/2024 TC:5 [facility]:[id number]
== END | disposition home or self-care (01) ==
PROVIDERS: Referring Provider Nurse Practitioner Family; Visit Provider Nurse Practitioner Family
DX: L57.0 Actinic keratosis (principal); L57.8 Other skin changes due to chronic exposure to nonionizing radiation
CPT/HCPCS: 88305